=== PATIENT | male | born 1950 | race Caucasian/White ===

== ENCOUNTER → 2017-11-06 09:27 | Outpatient (CLI) | payer MEDICARE, BC, SELFPAY ==
--- NOTE | 2017-11-06 09:35 | RAD_ITS ---
STUDY: X-RAY - LUMBAR SPINE REASON FOR EXAM: Male, 67 years old. One-month history of pain following injury. TECHNIQUE: 5 view(s) of the lumbar spine were obtained including oblique views. COMPARISON: None FINDINGS: There is straightening of the normal lumbar lordosis. There is no substantial scoliosis. There is a normal alignment of the vertebrae. There is multilevel endplate spondylosis of the lumbar vertebrae. Mild degree of disc space narrowing at the L4-L5 and L5-S1 levels. There is atherosclerotic calcification of the abdominal aorta without a demonstrated aneurysm. RAD/L/S Spine Min 4 Views IMPRESSION: Degenerative changes of the spine, as detailed above. Electronically Signed: Hood Sanabria MD at 15:49 EDT Tel [phone], Service support ,
--- NOTE | 2017-11-06 09:35 | RAD_ITS ---
STUDY: X-RAY - CERVICAL SPINE REASON FOR EXAM: Male, 67 years old. Neck pain and shoulder pain following injury. TECHNIQUE: 5 view(s) of the cervical spine were obtained including oblique views. COMPARISON: None FINDINGS: There are degenerative changes of the anterior atlantoaxial articulation. Normal odontoid process. There is straightening of the normal cervical lordosis. There is multi-level endplate spondylosis. There is multi-level degenerative disc disease with multilevel disc space narrowing. Normal visualized intervertebral neuroforamina. The soft tissue structures are unremarkable. RAD/Cerv Spine 4 or 5 Views IMPRESSION: Loss of the normal cervical lordosis. Multilevel spondylosis and disc degenerative disease. Electronically Signed: Hood Sanabria MD at 15:48 EDT Tel [phone], Service support ,
== END ==
PROVIDERS: Family Provider Family Medicine; PCP Family Medicine; Visit Provider Family Medicine
DX: M54.2 Cervicalgia (principal); M54.9 Dorsalgia, unspecified
CPT/HCPCS: 72050; 72110

== ENCOUNTER → 2017-11-07 06:14 | Outpatient (CLI) | payer MEDICARE, BC, SELFPAY ==
[2017-11-07 07:40] LABS: Absolute Neutrophil Count 3.2 X10^3/uL (2.0-7.7); Basophil# 0.03 X10^3/uL; Basophil% 0.5 % (0-1); Eosinophil# 0.24 X10^3/uL; Eosinophils% 3.7 % (0-5); Hematocrit 44.6 % (40-54); Hemoglobin 15.4 g/dl (13.0-16.5); Lymphocyte % 38.3 % (19-41); Mean Corp Hgb Conc 34.5 g/gl (32-36); Mean Corpuscular Hgb 32.2 pg (27.0-32.0); Mean Corpuscular Volume 93.3 fL (80-94); Mean Platelet Vol. 9.5 fl (6.2-12.0); Monocyte# 0.52 X10^3/uL; Neutrophil # 3.23 X10^3/uL (2.7-7.7); Neutrophil % 49.3 % (47-70); Platelet Count 219 K/mm3 (150-450); RBC Distribution Width CV 12.3 % (11.6-14.6); Red Blood Count 4.78 M/mm3 (4.6-6.2); White Blood Count 6.5 K/mm3 (4.4-11.0)
[2017-11-07 07:59] LABS: ALB/GLOB Ratio 1.1 RATIO (0.9-2.4); AST(SGOT) 18 U/L (15-37); Alanine Aminotransfer ALT/SGPT 39 U/L (16-61); Albumin, Serum 3.7 g/dL (3.2-5.0); Alkaline Phosphatase 90 U/L (45-117); Anion Gap 4 (5-15); BUN 20 mg/dL (7-18); BUN/Creat Ratio 22.3 RATIO (10-20); Calcium,Total 8.7 mg/dL (8.5-10.1); Chloride 109 mmol/L (98-107); Cholesterol 143 mg/dL (200); EST Glomerular Filtration Rate 89 mL/min (>60); Est Glom Filt Rate - Afr Amer 108 mL/min (>60); Globulin 3.4 g/dL (2.2-4.2); Glucose 87 mg/dL (74-106); High Density Lipoprotein 30 mg/dL; PSA,Total - Annual Screen 1.27 ng/mL (0.00-4.00); Potassium 4.3 mmol/L (3.5-5.1); Protein, Total 7.1 g/dL (6.4-8.2); Sodium Level 143 mmol/L (136-145); Triglycerides 129 mg/dL; Very Low Density Lipoprotein 26 mg/dL (5-40)
[2017-11-07 08:06] LABS: POSITIVE COUNT NO; POSITIVE DIFFERENTIAL NO; POSITIVE MORPHOLOGY NO
== END ==
PROVIDERS: Family Provider Family Medicine; PCP Family Medicine; Visit Provider Family Medicine
DX: I10 Essential (primary) hypertension (principal); Z12.5 Encounter for screening for malignant neoplasm of prostate; E78.5 Hyperlipidemia, unspecified
CPT/HCPCS: 36415; 80053; 80061; 84153; 85025; G0103

== ENCOUNTER → 2018-10-08 06:15 | Outpatient (CLI) | payer MEDICARE, BC, SELFPAY ==
[2017-06-12 09:36] VITALS: BMI 26.9
[2018-10-08 07:45] LABS: Absolute Lymphocyte Count 2.15 X10^3/ul (0.83-4.51); Absolute Neutrophil Count 2.8 X10^3/uL (2.0-7.7); Basophil# 0.03 X10^3/uL; Basophil% 0.5 % (0-1); Eosinophils% 3.5 % (0-5); Hematocrit 43.3 % (40-54); Lymphocyte # 2.15 X10^3/ul (4.0); Lymphocyte % 37.7 % (19-41); Mean Corp Hgb Conc 34.6 g/gl (32-36); Mean Corpuscular Hgb 32.1 pg (27.0-32.0); Mean Corpuscular Volume 92.7 fL (80-94); Mean Platelet Vol. 9.4 fl (6.2-12.0); Monocyte% 8.8 % (0-10); Neutrophil # 2.82 X10^3/uL (2.7-7.7); Neutrophil % 49.3 % (47-70); Platelet Count 227 K/mm3 (150-450); RBC Distribution Width CV 13.6 % (11.6-14.6); RBC Distribution Width SD 45.9 fl (35.1-43.9); Red Blood Count 4.67 M/mm3 (4.6-6.2); White Blood Count 5.7 K/mm3 (4.4-11.0)
[2018-10-08 07:48] LABS: POSITIVE COUNT NO; POSITIVE DIFFERENTIAL NO; POSITIVE MORPHOLOGY NO
[2018-10-08 08:00] LABS: ALB/GLOB Ratio 1.2 RATIO (0.9-2.4); AST(SGOT) 20 U/L (15-37); Alanine Aminotransfer ALT/SGPT 28 U/L (16-61); Albumin, Serum 3.9 g/dL (3.2-5.0); Alkaline Phosphatase 82 U/L (45-117); Anion Gap 7 (5-15); BUN 17 mg/dL (7-18); BUN/Creat Ratio 20.8 RATIO (10-20); Calcium,Total 8.9 mg/dL (8.5-10.1); Chloride 110 mmol/L (98-107); Cholesterol 154 mg/dL (200); Creatinine, Serum 0.82 mg/dL (0.70-1.30); EST Glomerular Filtration Rate 99 mL/min (>60); Est Glom Filt Rate - Afr Amer 120 mL/min (>60); Globulin 3.2 g/dL (2.2-4.2); Glucose 94 mg/dL (74-106); High Density Lipoprotein 36 mg/dL; Potassium 3.8 mmol/L (3.5-5.1); Protein, Total 7.1 g/dL (6.4-8.2); Sodium Level 143 mmol/L (136-145); Triglycerides 110 mg/dL; Very Low Density Lipoprotein 22 mg/dL (5-40)
[2018-10-11 12:06] LABS: Testosterone, Free 6.78 ng/dL (5.00-21.00)
[2018-10-12 11:15] LABS: Testosterone, % Free 2.16 % (1.50-4.20); Testosterone, Total 314 ng/dL (264-916)
== END ==
LOC: LAB.FUTURE 07-22 00:33 → BFHLAB 12-08 09:05
PROVIDERS: Family Provider Family Medicine; PCP Family Medicine; Referring Provider Family Medicine; Visit Provider Family Medicine
DX: I10 Essential (primary) hypertension (principal); E78.5 Hyperlipidemia, unspecified; N52.9 Male erectile dysfunction, unspecified; G47.61 Periodic limb movement disorder; Z51.81 Encounter for therapeutic drug level monitoring; Z12.5 Encounter for screening for malignant neoplasm of prostate
CPT/HCPCS: 36415; 80053; 80061; 84153; 84402; 84403; 85025; G0103

== ENCOUNTER → 2019-12-13 08:06 | Outpatient (CLI) | payer MEDICARE, BC, SELFPAY ==
[2017-06-12 09:36] VITALS: BMI 26.9
[2019-12-13 12:06] LABS: Absolute Lymphocyte Count 1.76 X10^3/uL (0.83-4.51); Absolute Neutrophil Count 3.5 X10^3/uL (2.0-7.7); Basophil# 0.06 X10^3/uL; Eosinophil# 0.14 X10^3/uL; Eosinophils% 2.4 % (0-5); Hematocrit 45.4 % (40-54); Hemoglobin 15.5 g/dL (13.0-16.5); Lymphocyte # 1.76 X10^3/ul (4.0); Lymphocyte % 30.1 % (19-41); Mean Corp Hgb Conc 34.1 g/dL (32-36); Mean Corpuscular Hgb 32.7 pg (27.0-32.0); Mean Corpuscular Volume 95.8 fL (80-94); Monocyte# 0.43 X10^3/uL; Monocyte% 7.4 % (0-10); NRBC Flagged by Analyzer 0 % (0-5); Neutrophil # 3.45 X10^3/uL (2.7-7.7); Neutrophil % 58.9 % (47-70); Platelet Count 241 K/mm3 (150-450); RBC Distribution Width CV 12.5 % (11.6-14.6); RBC Distribution Width SD 43.4 fl (35.1-43.9); Red Blood Count 4.74 M/mm3 (4.6-6.2); White Blood Count 5.9 K/mm3 (4.4-11.0)
[2019-12-13 12:22] LABS: Cholesterol 147 mg/dL (200); High Density Lipoprotein 31 mg/dL; PSA,Total - Annual Screen 1.75 ng/mL (0.00-4.00); Triglycerides 91 mg/dL; Very Low Density Lipoprotein 18 mg/dL (5-40)
[2019-12-17 15:19] LABS: Testosterone, % Free 1.63 % (1.50-4.20); Testosterone, Total 374 ng/dL (264-916)
== END ==
PROVIDERS: PCP Family Medicine; Visit Provider Family Medicine
DX: I10 Essential (primary) hypertension (principal); E78.5 Hyperlipidemia, unspecified; N52.9 Male erectile dysfunction, unspecified; Z12.5 Encounter for screening for malignant neoplasm of prostate
CPT/HCPCS: 36415; 80061; 84153; 84402; 84403; 85025; G0103

== ENCOUNTER 2020-03-15 06:21 | Day surgery (SDC) | payer MEDICARE, BC, SELFPAY ==
[2020-03-15 06:49] VITALS: BP 131/77; PULSE 65; RESP 16; TEMP 36.4; O2SAT 100; BMI 25.2
[2020-03-15] MEDS: Lactated Ringers 1,000 ML 100 ML IV (06:54)
--- NOTE | 2020-03-15 07:26 | H&P.OPEN ---
History of Present Illness Date of Admission: 03/15/20 The patient is a 69 year old M who presents for screening colonoscopy. Is been 10 years since his last colonoscopy. He has a brother who has had colon polyps. Past Medical/Surgical History - Planned Operation Planned Operative Procedure/s: COLONOSCOPY Date of Operative Procedure: 03/15/20 Permit Signed: Yes S.O.S: No Is This Patient Having a Total Joint: No - Previous Hospitalizations/Surgeries HX Hospitalizations: No HX of Surgeries: GALLBLADDER. ESOPHAGEAL WRAP. SHOULDER ARTHROPLASTY,. SHOULDER ROTATOR CUFF. CHIN/NECK SURGERY. COLONOSCOPY. SEPTOPLASTY Any Problems With Anesthesia: No You/Your Family Experience Fever (Hyperthermia) With Anes: No Cholinesterase deficiency: No - Cardiovascular Hx Chest Pain within Last 2 months: No Hx of Irregular Heartbeat and/or Afib: Yes - HEART MURMUR Hx Heart Attack: No Hx Congestive Heart Failure: No Hx Rheumatic Fever: No Hx Hypertension: Yes - ON MED Hx Internal Defibrillator: No Hx Pacemaker: No Hx Cardiac Catheterization: No Hx Cardiac Surgery/Stents/Etc.: No Hx Stress Test: Yes - 35 YRS AGO HX Edema: Yes - GIOVANI ANKLE Hx Pain in Legs when Walking/Leg Cramps: Yes - Respiratory Chronic Cough: No HX of Shortness of Breath: No Hoarseness: No Hx Chronic Obstructive Pulmonary Disease (COPD): No Hx Asthma: No Hx Emphysema: No Hx Sleep Apnea: Yes CPAP: Yes - QUIT USING-USES MOUTH DEVICE BIPAP: No Hx Oxygen Use at Home: No Hx Respiratory Tract Infection/Cold (presently): No Result (for STOP score): Positive Hx Smoking: No Smoking Status: Never smoker - Gastrointestinal Hx Gastroesophageal Reflux: No Hx Gastrointestinal Disorders: No Hx Gastrointestinal Bleed: No Hx Ulcer: Yes Hx Hiatal Hernia: No Difficulty Chewing/Swallowing: No Recent Onset of Swallowing Problems: No Special diet followed at home: No Hx Unplanned Weight Loss of 20#: No HX Unplanned Weight Gain of 20#: No - Neurological Hx Seizures: No HX Syncope/Blackout Spells/Unconsciousness: No Hx CVA/Stroke: No Hx Transient Ischemic Attacks (TIA): No Hx Multiple Sclerosis: No Hx Parkinson's Disease: No Hx Head/Neck Injury: Yes - FALL YRS AGO Hx Headaches: Yes - AGE 22-33 MIGRAINES-HAD SEPTOPLASTY SURG Hx Back Injury/Pain: Yes - LOWER DISC 4-5 Recent Onset of Speech Difficulty: No Restless Legs: Yes - PERIODIC LIMB MOVEMENT DISORDER Does patient have nerve stimulator: No - Blood Disorder Hx Leukemia: No Bleeding Tendencies: No Hx Deep Vein Thrombosis: No Hx High Cholesterol: Yes - OFF MEDS PRESENTLY Blood Transmitted Disease: No Hx Hepatitis: No Hx Cirrhosis: No Hx Anemia: No Hx Blood Disorders: No - Genitourinary Hx Renal Disease: No - Musculoskeletal Hx Arthritis: No Hx Rheumatoid Arthritis: No Hx Gout: No Recent Onset of an Orthopedic Problem: No - Endocrine Hx Diabetes: No Thyroid Disease: No Hx Steroid Therapy: No - Psycho/Social Hx Substance Use: No Hx Alcohol Use: No Hx Anxiety: No Hx Depression: No Mental Illness: No Hx Dementia: No - Miscellaneous Hx Cancer: No Recent Exposure to Contagious Disease: No Active MRSA: No Hx of C-Diff: No Any Loose Teeth: No Allergies No Known Allergies Allergy (Verified 03/06/20 12:04) - Discharge Is Pt Admitted From a Half-Way, or a Nursing Home: No Who Could Help: After D/C, Where Do you Plan to Go: Return Home - From the PAT History Number of Risk Factors: 2 - Physical Exam Vitals/I&O's: Vital Signs Temp Pulse Resp BP Pulse Ox 97.6 F L 65 16 131/77 H 100 03/15/20 06:49 03/15/20 06:49 03/15/20 06:49 03/15/20 06:49 03/15/20 06:49 Oxygen Delivery Method Room Air Weight: 175 lb 7.807 oz Body Mass Index (BMI) 25.2 General: Alert, Oriented x3 Lungs: Clear to auscultation Cardiovascular: Regular rate, Regular Rhythm, No murmurs Abdomen: Bowel Sounds Present, Soft, Non Tender, Non-Distended Current Medications Lactated Ringer's () 1,000 mls @ 100 mls/hr IV .Q10H JOHN Last Admin: 03/15/20 06:54 Dose: 100 mls/hr Documented by: Assessment/Plan All Active Problems (Last Updated 06/12/17 @ 09:39 by Vidhya Wilson) Sinusitis (Acute) Bronchitis (Acute) URI (upper respiratory infection) (Acute) Plan is for a screening colonoscopy. Procedure Criteria Procedure Type: Elective COVID Risk Discussion: The surgeon/proceduralist and patient have discussed in detail the risk of exposure to and/or potential harm posed by the COVID-19 virus with having a surgery/procedure at this time versus the risk of delaying the surgery/procedure. It is not possible to know either the risk of delaying the surgery or procedure or chance of getting an infection with perfect accuracy, but a joint decision was made between the patient and the surgeon/proceduralist to proceed at this time with the scheduled surgery/procedure as indicated on the consent form. Surgery Risks - Colonoscopy Risks Include but are not Limited To: Risks include but are not limited to: Bleeding, perforation requiring further surgery, inability to complete colonoscopy requiring barium enema.
[2020-03-15 07:45] VITALS: BP 106/73; BP 131/72; PULSE 67; RESP 16; TEMP 36.4; O2SAT 100
--- NOTE | 2020-03-15 07:47 | OP.CCLET_ITS ---
03/15/2020 Juan J Wallace [address] [place] [address] Re : Colonoscopy procedure for Satish Learyison Dear Dr. Wallace This procedure was performed on Sunday, March 15, 2020. My impressions and recommendations are as follows: Impressions : - The examined portion of the ileum was normal. - Non-bleeding internal hemorrhoids. No specimens collected. - The examination was otherwise normal. Recommendations : - Discharge patient to home. - Resume previous diet. - Continue present medications. - Await pathology results. - Repeat colonoscopy in 10 years for screening purposes. - Return to primary care physician (date not yet determined). My findings are described in the full procedure note, which is enclosed. If I can be of further assistance, please feel free to contact me at Doctor phone number(s): , Fax: [phone], Work: . Sincerely, MD Raman Alexandre MD 03/15/2020 7:46:27 AM This report has been signed electronically.
--- NOTE | 2020-03-15 07:47 | OP.COLON_ITS ---
Patient Name: Satish Ortiz Procedure Date: 03/15/2020 7:07 AM Date of : 1950 Age: 69 Procedure: Colonoscopy Indications: Screening for colorectal malignant neoplasm Providers: Raman Morris MD Referring MD: Juan J Wallace Medicines: See the Anesthesia note for documentation of the administered medications Patient Profile: This is a 69 year old male. Refer to note in patient chart for documentation of history and physical. Last Colonoscopy: 10 years ago. Complications: No immediate complications. Procedure: Pre-Anesthesia Assessment: - Prior to the procedure, a History and Physical was performed, and patient medications and allergies were reviewed. The patient's tolerance of previous anesthesia was also reviewed. The risks and benefits of the procedure and the sedation options and risks were discussed with the patient. All questions were answered, and informed consent was obtained. Prior Anticoagulants: The patient has taken no previous anticoagulant or antiplatelet agents. ASA Grade Assessment: II - A patient with mild systemic disease. After reviewing the risks and benefits, the patient was deemed in satisfactory condition to undergo the procedure. After I obtained informed consent, the scope was passed under direct vision. Throughout the procedure, the patient's blood pressure, pulse, and oxygen saturations were monitored continuously. The colonoscope was introduced through the anus and advanced to 3 cm into the ileum. The colonoscopy was performed without difficulty. The patient tolerated the procedure well. The quality of the bowel preparation was good. Scope In: 7:30:12 AM Scope Withdrawal Time 0 hours 6 minutes 38 seconds Scope Out: 7:42:25 AM Total Procedure Duration Time 0 hours 12 minutes 13 seconds Findings: The terminal ileum appeared normal. Non-bleeding internal hemorrhoids were found during retroflexion. The hemorrhoids were mild and small. No biopsies or other specimens were collected for this exam. The exam was otherwise without abnormality. Impression: - The examined portion of the ileum was normal. - Non-bleeding internal hemorrhoids. No specimens collected. - The examination was otherwise normal. Recommendation: - Discharge patient to home. - Resume previous diet. - Continue present medications. - Await pathology results. - Repeat colonoscopy in 10 years for screening purposes. - Return to primary care physician (date not yet determined). Procedure Code(s): --- Professional --- G0121, Colorectal cancer screening; colonoscopy on individual not meeting criteria for high risk Diagnosis Code(s): --- Professional --- Z12.11, Encounter for screening for malignant neoplasm of colon K64.8, Other hemorrhoids CPT copyright 2017 [employer]. All rights reserved. The codes documented in this report are preliminary and upon mercerizer machine operator review may be revised to meet current compliance requirements. MD Raman Alexandre MD 03/15/2020 7:46:27 AM This report has been signed electronically. Number of Addenda: 0 Note Initiated On: 03/15/2020 7:07 AM
[2020-03-15 07:50] VITALS: BP 106/72; BP 131/72; PULSE 68; RESP 16; O2SAT 99
[2020-03-15 07:55] VITALS: BP 119/77; BP 131/72; PULSE 65; RESP 16; O2SAT 98
[2020-03-15 08:00] VITALS: BP 117/81; BP 131/72; PULSE 66; RESP 16; TEMP 37.3; O2SAT 98
[2020-03-15 08:28] VITALS: BP 131/72
== END 2020-03-15 08:29 | disposition home or self-care (01) ==
LOC: EN 06:21 → AC 06:22
PROVIDERS: Anesthesiology; PCP Family Medicine; Referring Provider Family Medicine; Visit Provider Surgery
PROC: 0DJD8ZZ Inspection of Lower Intestinal Tract, Via Natural or Artificial Opening Endoscopic (ICD-10-PCS; CPT 45378; principal; 2020-03-15 07:25)
DX: Z12.11 Encounter for screening for malignant neoplasm of colon (principal); K64.8 Other hemorrhoids; Z11.59 Encounter for screening for other viral diseases; I10 Essential (primary) hypertension; E78.00 Pure hypercholesterolemia, unspecified; G47.61 Periodic limb movement disorder; G47.30 Sleep apnea, unspecified; Z79.899 Other long term (current) drug therapy; Z83.71 Family history of colonic polyps
CPT/HCPCS: G0121; 87635; C9803; J7120; J1610; J2405; U0003

== ENCOUNTER → 2020-03-30 10:50 | Outpatient (CLI) | payer MEDICARE, BC, SELFPAY ==
[2020-03-15 06:49] VITALS: BMI 25.2
--- NOTE | 2020-03-30 10:59 | MRI_ITS ---
STUDY: MRI LUMBAR SPINE WITHOUT CONTRAST REASON FOR EXAM: Male, 69 years old. low back pain into hips/grion x 3 mons TECHNIQUE: Standardized fat and water weighted pulse sequences were obtained in the sagittal and axial planes. COMPARISON: 12/29/2008 FINDINGS: T12-L1: Normal endplates. Normal disc height, hydration and morphology. Normal bilateral facet joints. Normal central canal and bilateral lateral recesses. Normal bilateral intervertebral neural foramina. Normal lumbar lordosis. There is no substantial scoliosis. Normal conus medullaris that terminates at the L1. L1-2: Normal endplates. Normal disc height, hydration and morphology. Normal bilateral facet joints. Normal central canal and bilateral lateral recesses. Normal bilateral intervertebral neural foramina. L2-3: Normal endplates. Normal disc height, hydration and morphology. Normal bilateral facet joints. Normal central canal and bilateral lateral recesses. Normal bilateral intervertebral neural foramina. L3-4: Normal endplates. Normal disc height, hydration and morphology. Normal bilateral facet joints. Normal central canal and bilateral lateral recesses. Normal bilateral intervertebral neural foramina. L4-5: Mild bilateral facet hypertrophy and moderate ligament flavum hypertrophy. Small central disc protrusion produces minimal spinal stenosis and no neural foraminal stenosis. L5-S1: Mild broad disc protrusion produces mild spinal stenosis and mild bilateral neural foraminal stenosis. Normal visualized sacral ala. Normal visualized paraspinous soft tissue structures. MRI/Spine Lumbar (Routine) IMPRESSION: Mild degenerative disc disease as described above. Electronically Signed: Calderon Kolb MD at 17:58 EDT Tel , Service support ,
== END ==
PROVIDERS: PCP Family Medicine; Referring Provider Family Medicine; Visit Provider Family Medicine
DX: M54.16 Radiculopathy, lumbar region (principal); M47.816 Spondylosis without myelopathy or radiculopathy, lumbar region
CPT/HCPCS: 72148

== ENCOUNTER 2020-08-16 08:16 | Outpatient (RCR) | payer MEDICARE, BC, SELFPAY | END 2020-08-16 23:59 | LOC: IMMUN 08:16 | PROVIDERS: PCP Family Medicine; Visit Provider Family Medicine | DX: Z23 Encounter for immunization (principal) | CPT/HCPCS: 0011A; 0012A ==

== ENCOUNTER 2021-10-08 10:20 | Day surgery (SDC) | payer MEDICARE, BC, SELFPAY ==
[2021-10-08] VITALS (7 sets, daily range): BP systolic 122–141; BP diastolic 72–94; PULSE 61–74; RESP 14–16; TEMP 36.4–37.2; O2SAT 98–100; BMI 25.4
[2021-10-08] MEDS: Lactated Ringers 1,000 ML 15 ML IV (11:20)
[2021-10-08] MEDS: Cefazolin 2 GM in 0.9% Normal Saline 100 ML IV (12:10)
--- NOTE | 2021-10-08 12:22 | RAD_ITS ---
STUDY: INTRAOPERATIVE FLUOROSCOPY TECHNIQUE: The examination was performed with referring physician in attendance. Under fluoroscopic observation, fluoroscopic images were obtained. Radiologist was not present for the study. Radiologist did not perform the procedure. This dictation is for documentation of the radiation dosage only. There is no interpretation of the images. TOTAL NUMBER OF IMAGES: 1 COMPARISON: None RADIATION DOSE: 72 mGy FLUOROSCOPY TIME: 177 seconds REASON FOR EXAM: SPINAL CORD STIMULATOR INSERTION Male, 71 years old. FINDINGS: Sequential images there is replacement of the spinal cord stimulator lead. RAD/Lumbar Spine 2 or 3 Views IMPRESSION: Fluoroscopic assistance images were obtained. Dictation for documentation purposes only. Electronically Signed: Yunior Hutchins MD at 21:23 EDT ,
[2021-10-08] MEDS: Bupivacaine 0.25% 30 ML Vial (13:22)
[2021-10-08] MEDS: Lidocaine 2% (20 ml mdv) 20 ML Vial (13:23)
[2021-10-08] MEDS: Bacitracin 500 UNITS/GM PACKET (13:26)
--- NOTE | 2021-10-08 15:27 | OP.PCM_ITS ---
Report of Operation Date of Procedure: 10/08/21 Description of Surgical Findings:: Description of Surgical Findings:: Pre- Operative Diagnosis: Lumbosacral radiculopathy, lumbosacral degenerative disc disease, lumbosacral spinal stenosis, lumbar postlaminectomy syndrome Post-Operative Diagnosis: Lumbosacral radiculopathy, lumbosacral degenerative disc disease, lumbosacral spinal stenosis, postlaminectomy syndrome of the lumbar spine Surgery/Procedure Performed:: 1. Spinal cord stimulator thoracolumbar leads placement x2 #2 spinal cord stimulator Medtronic intellus generator placement #3 spinal cord stimulator generator pocket creation at the left gluteal region #4 spinal cord stimulator programming, 5-intraoperative fluoroscopic interpretation ANESTHESIA: MAC COMPLICATIONS: None BLOOD LOSS: Minimal <25 CC Implanted device: Spinal cord stimulator lead [id number] lot number [id number], lead #[id number] lot number [id number] Medtronic spinal cord stimulator generator intellus serial number [id number] PROCEDURE IN DETAIL: History and physical today was reviewed. Risks and benefits of procedure e xplained. The patient understood, agreed to procedure, informed consent was obtained. IV inserted per routine protocol. The patient was taken to the operating room, placed in the prone position with a pillow positioned underneath the abdomen. A 2 g of Ancef IV piggyback was infused per anesthesia. The lower back and right gluteal area was prepped and draped in a sterile fashion using iodine x3 Ioban was placed. The C-arm was brought in position for AP view at the L1-2 vertebral bodies under direct visualization fluoroscopy on a true AP view the L1-2 interlaminar space was identified skin and subcutaneous tissue and size approximately 10 cc of a mix of 2% lidocaine and 0.25% Marcaine using a 25-gauge regular needle followed by a 25-gauge 3-1/2 inch spinal needle towards the interlaminar space at L1-L2, the skin and subcutaneous tissue were then anesthetized and using an 11-gauge blade was then taken down to the skin and subcutaneous tissue using a 14-gauge 3-1/2 inch Touhy needle provided by the [employer] HTI kit the needle was passed through the skin towards the interlaminar space at T12-L1 and a right paramedian approach the needle was then advanced under direct visualization fluoroscopy towards the interlaminar space at L2-3 [id number] technique was then carried to air towards the interlaminar space at T12-L1 once the tip of the needle was in the epidural space and loss of resistance was encountered to air and after confirmation of AP-- as well as oblique view of the spinal cord stimulator lead was then advanced under direct visualization fluoroscopy to be at the tip of the lead at T8 and the bottom of the lead around mid T10 after confirmation of AP as well as well as lateral view to confirm correct placement of the lead in the posterior compartment of the epidural space the previous procedure was then repeated to the same level on the right parapmedian approach, interlaminar space the second lead was then inserted under direct visualization with fluoroscopy to be at the tip of T8 and mid T10 area the leads were were then connected to the external neurostimulator and patient was then awakened to confirm satisfactory coverage of the painful area once satisfactory coverage was then achieved the stylette of each needle was then removed and the skin and subcutaneous tissue on to the left of the paramedian needles was then taken anesthetized with a total of 10 cc of the previous mixture of 0.25% Marcaine and 2% lidocaine using a 25-gauge regular needle the incision was then taken down through the skin and subcutaneous tissue towards the fascia making sure hemostasis was then maintained via cautery, the spinal cord stimulator leads were then passed through the above incision and secured using the anhor and sutured down with a 2-0 silk to the fascia at that level the spinal cord stimulator leads were then tunneled via a tunneler provided by the [employer] kit towards the previously incised spinal cord stimulator battery at the left gluteal region skin and subcutaneous tissue were anesthetized with approximately 10 cc of a mix of 2% lidocaine and 0.25% Marcaine using a 25 gauge regular needle, skin and subcutaneous tissue was then taken down with the 11-gauge blade hemostasis was maintained with Bovie and direct pressure the incision was then taken down to the fascia and the battery was then secured with the 2-0 silk sutures that were the spinal cord stimulator leads the upper lead was then marked the new until spinal cord stimulator battery was then provided Via [employer] HTI kit the battery was then reattached of the spinal cord stimulator make ensure that the top lead is attached to the top position from 0-7 electrodes and the bottom from 8-15 electrodes once impedance was then checked to be in the proper average number the intellus battery was then inserted into the pocket and impedance with when checked again the pocket was then inspected to confirm hemostasis in place, the intellus battery was then secured to the fascia using a 2-0 silk to the upper eyes of the battery confirming an upward writing of the intellus facing posterior, once complete confirmation the battery was then placed in the position and the the mid paramedian and the gluteal incisions were then closed primarily through a 3-0 Vicryl in a running fashion followed by a 4- 0 Vicryl to the skin, hemostasis was then maintained during the procedure the skin was then covered with a Steri-Strips and bacitracin patient was then returned into the supine position in a stable condition and returned to recovery in a stable condition patient experienced no signs or symptoms of intrathecal or intravascular injection patient experienced no paresthesia the procedure was completed without any apparent difficulty any complication the patient appeared to tolerate well, motor as well as sensory function was unchanged from prior to the procedure ESTIMATED BLOOD LOSS: Minimal less than 25 mL ASSESSMENT AND PLAN: This is a 71-year-old male with lumbosacral radiculopathy lumbosacral degenerative disc disease lumbosacral spinal stenosis status post 1. Spinal cord stimulator thoracolumbar leads placement x2 #2 spinal cord stimulator Medtronic intellus generator placement #3 spinal cord stimulator generator pocket creation at the left gluteal region #4 spinal cord stimulator programming, 5-intraoperative fluoroscopic interpretation patient will continue his current medications a prescription was provided to the patient keflex 500 mg 1 p.o. every 8 hours for 7 days postop instruction were given in writing to the patient and his as well as verbally and in writing, patient will follow approximately 1 week for reevaluation.
== END 2021-10-08 15:39 | disposition home or self-care (01) ==
LOC: SDC 10:22 → AC 10:58
PROVIDERS: PCP Family Medicine; Referring Provider Anesthesiology Pain Medicine; Visit Provider Anesthesiology Pain Medicine
PROC: (CPT 63685; principal; 2021-10-08 11:45)
DX: M51.17 Intervertebral disc disorders with radiculopathy, lumbosacral region (principal); M48.07 Spinal stenosis, lumbosacral region; M96.1 Postlaminectomy syndrome, not elsewhere classified; Z79.899 Other long term (current) drug therapy; I10 Essential (primary) hypertension; E78.5 Hyperlipidemia, unspecified; G47.33 Obstructive sleep apnea (adult) (pediatric); M19.90 Unspecified osteoarthritis, unspecified site; M47.817 Spondylosis without myelopathy or radiculopathy, lumbosacral region; Z79.891 Long term (current) use of opiate analgesic
CPT/HCPCS: 63685; 63650 ×2; 00300; 72100; 76000; C1778; C1820; J7120

== ENCOUNTER → 2022-01-15 | Outpatient (CLI) | payer MEDICARE, BC, SELFPAY ==
[2022-01-15 07:19] LABS: Absolute Lymphocyte Count 1.77 X10^3/uL (0.83-4.51); Basophil# 0.03 X10^3/uL; Basophil% 0.5 % (0-1); Eosinophil# 0.13 X10^3/uL; Hematocrit 47.9 % (40-54); Hemoglobin 16.4 g/dL (13.0-16.5); Lymphocyte # 1.77 X10^3/ul (0.83-4.51); Lymphocyte % 27.5 % (19-41); Mean Corp Hgb Conc 34.2 g/dL (32-36); Mean Corpuscular Volume 93.6 fL (80-94); Monocyte# 0.48 X10^3/uL; Monocyte% 7.5 % (0-10); NRBC Flagged by Analyzer 0 % (0-5); Neutrophil # 3.99 X10^3/uL (2.7-7.7); Platelet Count 270 K/mm3 (150-450); RBC Distribution Width CV 12.3 % (11.6-14.6); RBC Distribution Width SD 42.6 fl (35.1-43.9); Red Blood Count 5.12 M/mm3 (4.6-6.2); White Blood Count 6.4 K/mm3 (4.4-11.0)
[2022-01-15 07:58] LABS: ALB/GLOB Ratio 1.2 RATIO (0.9-2.4); AST(SGOT) 12 U/L (15-37); Alanine Aminotransfer ALT/SGPT 27 U/L (16-61); Alkaline Phosphatase 80 U/L (45-117); Anion Gap 3 (5-15); BUN 12 mg/dL (7-18); BUN/Creat Ratio 14.2 RATIO (10-20); Calcium,Total 9.4 mg/dL (8.5-10.1); Chloride 106 mmol/L (98-107); Cholesterol 134 mg/dL (200); Creatinine, Serum 0.85 mg/dL (0.70-1.30); EST Glomerular Filtration Rate 94 mL/min (>60); Est Glom Filt Rate - Afr Amer 114 mL/min (>60); Globulin 3.4 g/dL (2.2-4.2); Glucose 91 mg/dL (74-106); High Density Lipoprotein 36 mg/dL; PSA,Total - Annual Screen 1.51 ng/mL (0.00-4.00); Potassium 3.8 mmol/L (3.5-5.1); Protein, Total 7.4 g/dL (6.4-8.2); Sodium Level 139 mmol/L (136-145); Triglycerides 92 mg/dL; Very Low Density Lipoprotein 18 mg/dL (5-40)
[2022-01-18 19:52] LABS: Testosterone, % Free 2.47 % (1.50-4.20); Testosterone, Total 421 ng/dL (264-916)
== END | disposition home or self-care (01) ==
LOC: LAB 06:11
PROVIDERS: PCP Family Medicine; Referring Provider Family Medicine; Visit Provider Family Medicine
DX: I10 Essential (primary) hypertension (principal); E78.5 Hyperlipidemia, unspecified; R35.0 Frequency of micturition; Z12.5 Encounter for screening for malignant neoplasm of prostate; E29.1 Testicular hypofunction
CPT/HCPCS: 36415; 80053; 80061; 84153; 84402; 84403; 85025; G0103

== ENCOUNTER → 2022-08-08 | Outpatient (CLI) | payer MEDICARE, BC, SELFPAY ==
--- NOTE | 2022-08-08 09:16 | RAD_ITS ---
STUDY: X-RAY - PELVIS AND LEFT HIP REASON FOR EXAM: Male, 71 years old. L HIP PAIN TECHNIQUE: 3 views of the pelvis and hip. COMPARISON: None. FINDINGS: There is a non-specific bowel gas pattern. There are multiple calcified phleboliths. Normal bilateral iliac wings, sacroiliac joints and visualized sacrum. Normal bilateral superior and inferior pubic rami. There are degenerative changes of the pubic symphysis with articular narrowing and sclerosis. Normal bilateral ischial tuberosities. Normal visualized femoral head. There is osteoarthritic spur formation of the acetabular rim. There is moderate articular joint space narrowing of the hip. Moderate degree of osteonecrosis of the right hip joint as well. RAD/HIP, UNI W/ Pelvis 2-3 Views IMPRESSION: Moderate degree of osteoarthritis of both hip joints. Electronically Signed: Hood Sanabria MD at 9:55 EST ,
== END | disposition home or self-care (01) ==
LOC: RAD 09:12
PROVIDERS: PCP Family Medicine; Referring Provider Family Medicine; Visit Provider Family Medicine
DX: M25.552 Pain in left hip (principal)
CPT/HCPCS: 73502

== ENCOUNTER → 2022-08-15 | Outpatient (CLI) | payer MEDICARE, BC, SELFPAY ==
--- NOTE | 2022-08-15 13:42 | ECHOCS_ITS ---
Reason For Study: MURMUR Procedure This was a 2D Doppler, Color Flow transthoracic echocardiogram. The study was technically difficult. Contrast injection was performed. Exam performed in department. Left Ventricle Normal LV size. Left ventricular systolic function is normal. The estimated ejection fraction is 65 %. No evidence for diastolic dysfunction. No regional wall motion abnormalities noted. Right Ventricle Normal RV size. Normal systolic function. Atria Normal left atrium. Normal right atrium. Agitated saline contrast study considered positive for right to left interatrial shunt compatible with a small PFO versus ASD. Mitral Valve There is no mitral annular calcification. Normal mitral valve. Mild (1+) mitral valve insufficiency. Tricuspid Valve Normal tricuspid valve. Mild tricuspid valve insufficiency. Right ventricular systolic pressure estimated to be 32 mmHg. Aortic Valve The aortic valve leaflets are not well visualized, however, there does appear to be evidence of thickening, calcification, and partial restriction. Pulmonic Valve The pulmonic valve is not well visualized. Trivial pulmonic valve insufficiency. Great Vessels Normal sized aortic root. Pericardium/Pleural No pericardial effusion. Medication 22 gauge I.V. with prn adaptor inserted into right arm. Diluted definity 2ml given slow IV push to enhance endocardial definition. Performed a rapid injection of agitated mix of 9 cc saline and 1cc air to assess for atrial septal defect. MMode/2D Measurements & Calculations LVIDd: 4.5 cm IVSd: 0.92 cm LVOT diam: 2.0 cm LVIDs: 3.0 cm LVPWd: 0.64 cm RVDd: 3.3 cm FS: 33.0 % LVOT area: 3.2 cm2 Ao root diam: 2.8 cm LAV(MOD-bp): 43.8 ml LVAd ap4: 27.0 cm2 LAV(MOD-bp) Indexed: 21.9 ml/m2 LVLd ap4: 8.2 cm LAV(MOD-sp2): 42.5 ml EDV(MOD-sp4): 73.3 ml LAV(MOD-sp4): 41.7 ml EDV(sp4-el): 75.1 ml LVAs ap4: 13.4 cm2 LVLs ap4: 6.7 cm ESV(MOD-sp4): 22.8 ml ESV(sp4-el): 22.9 ml EF(MOD-sp4): 68.9 % EF(sp4-el): 69.6 % SV(MOD-sp4): 50.6 ml SV(sp4-el): 52.3 ml LA A4 area: 18.0 cm2 LA dimension(2D): 3.3 cm RA A4 area: 14.6 cm2 Time Measurements MV dec time: 0.23 sec Doppler Measurements & Calculations MV E max solomon: 76.2 cm/sec Lat Peak E' Solomon: 13.3 cm/sec Med Peak E' Solomon: 11.0 cm/sec MV A max solomon: 69.9 cm/sec E/E' lat: 5.7 E/E' med: 6.9 MV E/A: 1.1 Ao V2 max: 233.5 cm/sec LV V1 max: 153.2 cm/sec SV(LVOT): 116.7 ml Ao max P.8 mmHg LV V1 max P.4 mmHg Ao V2 mean: 165.5 cm/sec LV V1 mean P.9 mmHg Ao mean P.2 mmHg LV V1 mean: 102.9 cm/sec Ao V2 VTI: 52.7 cm LV V1 VTI: 36.0 cm AV (velocity ratio): 0.68 CLEVE(I,D): 2.2 cm2 CLEVE(V,D): 2.1 cm2 PA V2 max: 102.4 cm/sec TR max solomon: 269.6 cm/sec TR max P.1 mmHg ECHO/Echo Complete W/ Contrast Interpretation Summary The study was technically difficult. Contrast injection was performed. Left ventricular systolic function is normal. The estimated ejection fraction is 65 %. Mild (1+) mitral valve insufficiency. Mild tricuspid valve insufficiency. The aortic valve leaflets are not well visualized, however, there does appear t o be evidence of thickening, calcification, and partial restriction. Trivial pulmonic valve insufficiency. Right ventricular systolic pressure estimated to be 32 mmHg. No evidence for diastolic dysfunction. Agitated saline contrast study considered positive for right to left interatria l shunt compatible with a small PFO versus ASD. Ordering Physician: Seamus Wallace Referring Physician: SEAMUS WALLACE Performed By: Renetta Brantley RDCS
== END | disposition home or self-care (01) ==
LOC: CVS 13:38
PROVIDERS: PCP Family Medicine; Visit Provider Family Medicine
DX: R01.1 Cardiac murmur, unspecified (principal)
CPT/HCPCS: 93306; Q9957; A4216; C8929

== ENCOUNTER → 2022-08-28 | Outpatient (CLI) | payer MEDICARE, BC, SELFPAY ==
[2022-08-28 07:45] LABS: Cholesterol 130 mg/dL (200); High Density Lipoprotein 34 mg/dL; Triglycerides 98 mg/dL; Very Low Density Lipoprotein 20 mg/dL (5-40)
== END | disposition home or self-care (01) ==
PROVIDERS: PCP Family Medicine; Referring Provider Internal Medicine Cardiovascular Disease; Visit Provider Internal Medicine Cardiovascular Disease
DX: I10 Essential (primary) hypertension (principal)
CPT/HCPCS: 36415; 80061

== ENCOUNTER → 2022-08-30 | Outpatient (CLI) | payer MEDICARE, BC, SELFPAY | END | disposition home or self-care (01) | LOC: CVS 09:43 | PROVIDERS: PCP Family Medicine; Visit Provider Internal Medicine Cardiovascular Disease | DX: I35.0 Nonrheumatic aortic (valve) stenosis (principal) ==

== ENCOUNTER → 2022-09-19 | Outpatient (CLI) | payer MEDICARE, BC, SELFPAY ==
[2022-09-19 07:39] LABS: Anion Gap 4 (5-15); BUN 13 mg/dL (7-18); BUN/Creat Ratio 16.4 RATIO (10-20); Calcium,Total 8.9 mg/dL (8.5-10.1); Chloride 107 mmol/L (98-107); Creatinine, Serum 0.79 mg/dL (0.70-1.30); EST Glomerular Filtration Rate 102 mL/min (>60); Est Glom Filt Rate - Afr Amer 124 mL/min (>60); Glucose 89 mg/dL (74-106); Potassium 3.8 mmol/L (3.5-5.1); Sodium Level 140 mmol/L (136-145)
== END | disposition home or self-care (01) ==
LOC: LAB 06:08
PROVIDERS: PCP Family Medicine; Referring Provider Internal Medicine Cardiovascular Disease; Visit Provider Internal Medicine Cardiovascular Disease
DX: I10 Essential (primary) hypertension (principal)
CPT/HCPCS: 36415; 80048

== ENCOUNTER → 2022-12-12 | Outpatient (CLI) | payer MEDICARE, BC, SELFPAY ==
[2022-12-12 11:16] LABS: Absolute Lymphocyte Count 1.63 X10^3/uL (0.83-4.51); Absolute Neutrophil Count 4.2 X10^3/uL (2.0-7.7); Basophil# 0.05 X10^3/uL; Basophil% 0.8 % (0-1); Eosinophil# 0.11 X10^3/uL; Eosinophils% 1.7 % (0-5); Hemoglobin 15.5 g/dL (13.0-16.5); Lymphocyte # 1.63 X10^3/ul (0.83-4.51); Lymphocyte % 25.2 % (19-41); Mean Corp Hgb Conc 33.7 g/dL (32-36); Mean Platelet Vol. 9.9 fl (6.2-12.0); Monocyte# 0.45 X10^3/uL; Monocyte% 6.9 % (0-10); NRBC Flagged by Analyzer 0 % (0-5); Neutrophil # 4.23 X10^3/uL (2.7-7.7); Neutrophil % 65.2 % (47-70); Platelet Count 246 K/mm3 (150-450); RBC Distribution Width CV 12.5 % (11.6-14.6); RBC Distribution Width SD 43.8 fl (35.1-43.9); Red Blood Count 4.84 M/mm3 (4.6-6.2); White Blood Count 6.5 K/mm3 (4.4-11.0)
[2022-12-12 11:41] LABS: Albumin, Serum 3.7 g/dL (3.2-5.0); Anion Gap 3 (5-15); BUN 13 mg/dL (7-18); BUN/Creat Ratio 16.4 RATIO (10-20); Chloride 108 mmol/L (98-107); Creatinine, Serum 0.79 mg/dL (0.70-1.30); EST Glomerular Filtration Rate 102 mL/min (>60); Est Glom Filt Rate - Afr Amer 123 mL/min (>60); Glucose 97 mg/dL (74-106); Potassium 4.2 mmol/L (3.5-5.1); Sodium Level 141 mmol/L (136-145)
== END | disposition home or self-care (01) ==
LOC: LAB 10:06
PROVIDERS: PCP Family Medicine; Referring Provider Specialist; Visit Provider Specialist
DX: Z01.818 Encounter for other preprocedural examination (principal)
CPT/HCPCS: 36415; 80048; 82040; 85025

== ENCOUNTER → 2023-02-07 | Outpatient (CLI) | payer MEDICARE, BC, SELFPAY ==
--- NOTE | 2023-02-07 12:16 | EKG12_ITS ---
Test Reason : PREOP Blood Pressure : / mmHG Vent. Rate : 069 BPM Atrial Rate : 069 BPM P-R Int : 160 ms QRS Dur : 066 ms QT Int : 378 ms P-R-T Axes : 037 -13 016 degrees QTc Int : 405 ms Normal sinus rhythm Normal ECG Confirmed by GLORIA GOLD ([id number]), order editor CONNIE BARRAGAN ([id number]) on 02/11/2023 9:05:10 AM Referred By: Flex Brown Confirmed By:GLORIA GOLD
[2023-02-07 13:40] LABS: Absolute Lymphocyte Count 1.53 X10^3/uL (0.83-4.51); Absolute Neutrophil Count 6.6 X10^3/uL (2.0-7.7); Basophil# 0.07 X10^3/uL; Basophil% 0.8 % (0-1); Eosinophil# 0.08 X10^3/uL; Eosinophils% 0.9 % (0-5); Hemoglobin 14.8 g/dL (13.0-16.5); Lymphocyte # 1.53 X10^3/ul (0.83-4.51); Lymphocyte % 17.1 % (19-41); Mean Corp Hgb Conc 32.9 g/dL (32-36); Mean Corpuscular Hgb 32.1 pg (27.0-32.0); Mean Corpuscular Volume 97.6 fL (80-94); Monocyte# 0.62 X10^3/uL; Monocyte% 6.9 % (0-10); NRBC Flagged by Analyzer 0 % (0-5); Neutrophil % 73.9 % (47-70); Platelet Count 280 K/mm3 (150-450); RBC Distribution Width CV 12.6 % (11.6-14.6); RBC Distribution Width SD 45.1 fl (35.1-43.9); Red Blood Count 4.61 M/mm3 (4.6-6.2); White Blood Count 8.9 K/mm3 (4.4-11.0)
[2023-02-07 14:08] LABS: Anion Gap 3 (5-15); BUN 12 mg/dL (7-18); BUN/Creat Ratio 15.3 RATIO (10-20); Calcium,Total 9.4 mg/dL (8.5-10.1); Chloride 107 mmol/L (98-107); Creatinine, Serum 0.78 mg/dL (0.70-1.30); EST Glomerular Filtration Rate 103 mL/min (>60); Est Glom Filt Rate - Afr Amer 125 mL/min (>60); Glucose 99 mg/dL (74-106); Sodium Level 139 mmol/L (136-145)
== END | disposition home or self-care (01) ==
LOC: PSN 12:15
PROVIDERS: PCP Family Medicine; Referring Provider Specialist; Visit Provider Specialist
DX: Z01.818 Encounter for other preprocedural examination (principal); Z01.810 Encounter for preprocedural cardiovascular examination
CPT/HCPCS: 36415; 80048; 82040; 85025; 87081; 93005

== ENCOUNTER → 2023-05-27 | Outpatient (CLI) | payer MEDICARE, BC, SELFPAY ==
--- NOTE | 2023-05-27 10:07 | MRI_ITS ---
INDICATION: RADICULOPATHY EXAMINATION: MRI - MR Spine Lumbar W/O Contrast TECHNIQUE: Multiplanar and multisequence MR images of the lumbar spine. IV Contrast Dosage and Agent: None. COMPARISON: 03/30/2020 FINDINGS: VERTEBRAE: Vertebral body heights are preserved. No acute fracture or pathologic marrow replacement. VERTEBRAL ALIGNMENT: No spondylolisthesis. There is preservation of the normal lumbar lordosis. CORD: Normal position and signal intensity of the conus medullaris. L1/L2: Normal disc height and morphology. Normal spinal canal, lateral recesses and neuroforamina. L2/L3: Normal disc height and morphology. Normal spinal canal, lateral recesses and neuroforamina. L3/L4: Normal disc height and morphology. Normal spinal canal, lateral recesses and neuroforamina. L4/L5: Bilateral facet joint hypertrophy and minimal annular bulge. Minimal central stenosis and left foraminal stenosis. L5/S1: Bilateral facet joint hypertrophy and mild circumferential annular bulge. Mild central and bilateral foraminal stenosis. SOFT TISSUES: Unremarkable. MRI/Spine Lumbar (Routine) IMPRESSION: Mild degenerative disc changes of the lower lumbar spine similar to prior study. Electronically Signed: Tang Mo MD at 21:39 EST ,
== END | disposition home or self-care (01) ==
LOC: MRI 10:04
PROVIDERS: PCP Family Medicine; Referring Provider Nurse Practitioner Acute Care; Visit Provider Nurse Practitioner Acute Care
DX: M46.96 Unspecified inflammatory spondylopathy, lumbar region (principal); M51.37 Other intervertebral disc degeneration, lumbosacral region; M54.17 Radiculopathy, lumbosacral region; M47.817 Spondylosis without myelopathy or radiculopathy, lumbosacral region; M48.07 Spinal stenosis, lumbosacral region; M48.062 Spinal stenosis, lumbar region with neurogenic claudication
CPT/HCPCS: 72148

== ENCOUNTER → 2023-06-30 | Outpatient (CLI) | payer MEDICARE, BC, SELFPAY ==
--- OUTSIDE RECORDS SUMMARY | 2023-06-30 11:00 | XMS RPT_ITS | CCD ---
Author Name Unknown Address [address] [place] [address] [place] [address] Organization [facility] Care Team Providers Care [employer] Counter Assistant Name Role Phone IVETH BARNEY Unavailable Unavail able IVETH BARNEY Unavailable Unavail able MAGALY SUBRAMANIAN (WRITER EDITOR) Referring Unavailabl e Problems Problem Classification Problem Date Documented Da te Episodic/Chronic Other eye disorders (1 source) Unspecified ptosis of bilateral eyelids; Translations: [Unspecified ptosis of bilateral eyelids] Onset: 03-20-2018 Episodic Other lower respiratory disease (1 source) Cough; Translations: [Cough] Onset: 08-22-2018 Episodic Results Test Name Value Interpretation Reference Range Facil ity Encounters Encounter Date Encounter Type Care Provider Facility Start: 08-22-2018 End: 08-25-2018 Patient encounter procedure MAGALY Rose (VELIA) MORIS [facility] Start: 03-20-2018 End: 03-20-2018 Patient encounter IVETH FARR [facility] Summary Purpose Family History No Family History Records FoundNo Family History Records Found Advance Directives No Advanced Directives Records FoundNo Advanced Directives Records Found Additional Source Comments (unrecognized sect ion and content) No Status Records FoundNo Status Records Found INFORMATION SOURCE (unrecogn ized section and content) DATE CREATED AUTHOR AUTHOR'S ORGANIZ ATALY 08/26/2018 [facility] FOR RECORDS PERTAINING TO PATIENTS WHO ARE OR HAVE BEEN ENROLLED IN A CHEMICAL DEPENDENCY/SUBSTANCEABUSE PROGRAM, SOME INFORMATION MAY BE OMITTED. This clinical summary was aggregated from multiple sources. Caution should be exercised in using it in the provision of clinical care. This summary normalizes information from multiple sources, and as a consequence, information in this document may materially change the coding, format and clinical context of patient data. In addition, data may be omitted in some cases. CLINICAL DECISIONS SHOULD BE BASED ON THE PRIMARY CLINICAL RECORDS. [employer] provides no warranty or guarantee of the accuracy or completeness of information in this document.
[2023-06-30 12:20] LABS: Absolute Lymphocyte Count 1.48 X10^3/uL (0.83-4.51); Absolute Neutrophil Count 5.9 X10^3/uL (2.0-7.7); Basophil# 0.05 X10^3/uL; Basophil% 0.6 % (0-1); Eosinophil# 0.03 X10^3/uL; Eosinophils% 0.4 % (0-5); Hematocrit 49.1 % (40-54); Hemoglobin 16.2 g/dL (13.0-16.5); Lymphocyte # 1.48 X10^3/ul (0.83-4.51); Lymphocyte % 18.5 % (19-41); Mean Corpuscular Hgb 30.4 pg (27.0-32.0); Mean Corpuscular Volume 92.1 fL (80-94); Mean Platelet Vol. 9.4 fl (6.2-12.0); Monocyte# 0.56 X10^3/uL; NRBC Flagged by Analyzer 0 % (0-5); Neutrophil # 5.85 X10^3/uL (2.7-7.7); Neutrophil % 73.1 % (47-70); Platelet Count 307 K/mm3 (150-450); RBC Distribution Width CV 13.6 % (11.6-14.6); RBC Distribution Width SD 46.5 fl (35.1-43.9); Red Blood Count 5.33 M/mm3 (4.6-6.2)
[2023-06-30 12:42] LABS: Color, Urine Yellow (Yellow); Glucose, Dipstick Normal (Normal); Ketone-Dipstick 5 mg/dl (Negative); Leukocyte Esterase-Dipstick Negative /ul (Negative); Nitrite-Dipstick Negative (Negative); Occult Blood-Urine 10 /ul (Negative); Protein-Dipstick Negative (Negative); Specific Gravity, Urine 1.025 (1.002-1.030); Urine Bilirubin Dipstick Negative (Negative); Urine Clarity Sl. Cloudy (Clear); Urine Urobilinogen Normal (Normal)
[2023-06-30 13:38] LABS: ALB/GLOB Ratio 1.2 RATIO (0.9-2.4); AST(SGOT) 17 U/L (15-37); Alanine Aminotransfer ALT/SGPT 41 U/L (16-61); Alkaline Phosphatase 94 U/L (45-117); Anion Gap 5 (5-15); BUN 13 mg/dL (7-18); BUN/Creat Ratio 15.5 RATIO (10-20); Calcium,Total 9.6 mg/dL (8.5-10.1); Chloride 105 mmol/L (98-107); Creatinine, Serum 0.84 mg/dL (0.70-1.30); EST Glomerular Filtration Rate 95 mL/min (>60); Est Glom Filt Rate - Afr Amer 115 mL/min (>60); Globulin 3.4 g/dL (2.2-4.2); Glucose 90 mg/dL (74-106); LDH 175 U/L (87-241); PSA,Total - Annual Screen 3.14 ng/mL (0.00-4.00); Potassium 3.9 mmol/L (3.5-5.1); Protein, Total 7.4 g/dL (6.4-8.2); Sodium Level 138 mmol/L (136-145); T4 Free Direct 1.66 ng/dL (0.76-1.46); Thyroid Stim Hormone (TSH) 0.88 uIU/mL (0.358-3.74)
[2023-07-01 04:07] LABS: Carbohydrate AG 19-9 9 U/mL (0-35)
== END | disposition home or self-care (01) ==
LOC: BFHLAB 10:36
PROVIDERS: PCP Family Medicine; Visit Provider Family Medicine
DX: Z12.5 Encounter for screening for malignant neoplasm of prostate (principal); R35.0 Frequency of micturition; R10.9 Unspecified abdominal pain; R63.4 Abnormal weight loss
CPT/HCPCS: 36415; 80053; 81002; 83615; 84134; 84153; 84439; 84443; 85025; 86301; G0103

== ENCOUNTER → 2023-07-03 | Outpatient (CLI) | payer MEDICARE, BC, SELFPAY ==
[2023-07-03 16:00] LABS: Free T3 2.4 pg/mL (2.18-3.98); T4 Free Direct 1.28 ng/dL (0.76-1.46); T4 Total, Thyroxin 9.7 ug/dL (4.5-12.1); Thyroid Stim Hormone (TSH) 0.82 uIU/mL (0.358-3.74)
[2023-07-03 17:34] LABS: T3 Total - Triiodothyronine 0.95 ng/mL (0.6-1.81)
[2023-07-07 17:07] LABS: Thyroid Stim Immunoglob <0.10 IU/L (0.00-0.55)
== END | disposition home or self-care (01) ==
LOC: BFHLAB 13:20
PROVIDERS: PCP Family Medicine; Visit Provider Family Medicine
DX: R63.4 Abnormal weight loss (principal); R79.89 Other specified abnormal findings of blood chemistry
CPT/HCPCS: 36415; 84436; 84439; 84443; 84445; 84480; 84481

== ENCOUNTER → 2023-07-09 | Outpatient (CLI) | payer MEDICARE, BC, SELFPAY ==
--- NOTE | 2023-07-09 14:14 | US_ITS ---
INDICATION: NODULE/ELEVATED T4 EXAMINATION: Ultrasound US Thyroid (eg thyroid, parathyroid, parotid) TECHNIQUE: Arcos scale and color doppler imaging was performed of the thyroid gland. COMPARISON: None. FINDINGS: RIGHT THYROID LOBE: 6.1 x 2.3 x 3.0 cm for total volume of 21.7 mL. Heterogeneous echotexture with normal vascularity. [ Several subcentimeter thyroid nodules the largest of which, 1.1 x 0.8 x 0.5 cm and is cystic. Smaller mixed solid and cystic nodules are present. Solid nodules are isoechoic and heterogeneous. None of these meet ACR Ti RADS criteria for follow-up imaging. There is a curvilinear, 1 to 2 mm cystic peripheral calcification right thyroid lobe, 8 mm in length with posterior shadowing LEFT THYROID LOBE: 6 x 1 x 2.4 x 2.8 cm for total volume of 21.5 mL. Significant heterogeneity throughout the lobe. Normal vascularity. [ Several subcentimeter solid nodules, isoechoic without suspicious features. Are also 2 mixed solid and cystic nodules, none of which meet criteria for follow-up imaging ISTHMUS: 7 mm. No thyroid nodules are present. US/Thyroid IMPRESSION: Enlarged, heterogeneous thyroid containing multiple subcentimeter nodules, none of which meet criteria for follow-up imaging based on ACR Ti RADS criteria. Electronically Signed: Anjel Mayen DO at 22:40 EST ,
--- OUTSIDE RECORDS SUMMARY | 2023-07-09 14:34 | XMS RPT_ITS | CCD ---
Author Name Unknown Address [address] [place] [address] [place] [address] Organization [facility] Care Team Providers Care Analytical Lead Name Role Phone IVETH BARNEY Unavailable Unavail able IVETH BARNEY Unavailable Unavail able MAGALY SUBRAMANIAN (LEAD DATA ARCHITECT) Referring Unavailabl e Problems Problem Classification Problem [...] Patient encounter procedure MAGALY Rose (VELIA) MORIS [facility] Start: 03-20-2018 End: 03-20-2018 Patient encounter IVTEH FARR [facility] Summary Purpose Family History No Family History Records FoundNo Family History Records Found Advance Directives No Advanced Directives Records FoundNo Advanced Directives Records Found Additional Source Comments (unrecognized sect ion and content) No Status Records FoundNo Status Records Found INFORMATION SOURCE (unrecogn ized section and content) DATE CREATED AUTHOR AUTHOR'S ORGANIZ ATALY 08/26/2018 [facility] FOR RECORDS PERTAINING TO PATIENTS WHO ARE [...] BE BASED ON THE PRIMARY CLINICAL RECORDS. [employer] provides no warranty or guarantee of the accuracy or completeness of information in this document.
== END | disposition home or self-care (01) ==
LOC: US 14:12
PROVIDERS: PCP Family Medicine; Referring Provider Family Medicine; Visit Provider Family Medicine
DX: E04.1 Nontoxic single thyroid nodule (principal)
CPT/HCPCS: 76536

== ENCOUNTER → 2023-10-03 | Outpatient (CLI) | payer MEDICARE, BC, SELFPAY ==
[2023-10-03 09:12] LABS: Cholesterol 160 mg/dL (200); High Density Lipoprotein 44 mg/dL; Triglycerides 62 mg/dL; Very Low Density Lipoprotein 12 mg/dL (5-40)
== END | disposition home or self-care (01) ==
LOC: LAB 06:33
PROVIDERS: PCP Family Medicine; Referring Provider Internal Medicine Cardiovascular Disease; Visit Provider Internal Medicine Cardiovascular Disease
DX: I10 Essential (primary) hypertension (principal)
CPT/HCPCS: 36415; 80061

== ENCOUNTER → 2023-11-05 | Outpatient (CLI) | payer MEDICARE, BC, SELFPAY ==
--- NOTE | 2023-11-05 12:42 | ECHOD_ITS ---
Reason For Study: MURMUR Procedure This was a 2D Doppler, Color Flow transthoracic echocardiogram. Exam performed in department. Left Ventricle Normal LV size. The estimated ejection fraction is 60 %. No evidence for diastolic dysfunction. No regional wall motion abnormalities noted. Right Ventricle Normal RV size. Normal systolic function. Atria The left and right atria are normal. No doppler evidence for ASD. Mitral Valve There is no mitral valve stenosis. No mitral valve insufficiency. Tricuspid Valve There is no tricuspid stenosis. Trivial tricuspid valve insufficiency. Unable to estimate RV systolic pressure due to insufficient tricuspid regurgitant envelope. Aortic Valve Mild diffuse aortic valve thickening. Trisinus/trileaflet aortic valve. Mild aortic stenosis. No aortic valve insufficiency. Pulmonic Valve There is no pulmonic valvular stenosis. No pulmonic valve insufficiency. Great Vessels Normal aortic root. Pericardium/Pleural No pericardial effusion. MMode/2D Measurements & Calculations LVIDd: 3.3 cm IVSd: 1.1 cm LVOT diam: 2.0 cm LVIDs: 1.9 cm LVPWd: 1.0 cm LVOT area: 3.0 cm2 RVDd: 3.9 cm FS: 42.5 % Ao root diam: 3.1 cm LAV(MOD-bp): 43.7 ml LVAd ap4: 19.1 cm2 LAV(MOD-bp) Indexed: 22.7 ml/m2 LVLd ap4: 7.2 cm LAV(MOD-sp2): 44.1 ml EDV(MOD-sp4): 40.4 ml LAV(MOD-sp4): 43.1 ml EDV(sp4-el): 42.9 ml LVAs ap4: 9.2 cm2 LVLs ap4: 5.7 cm ESV(MOD-sp4): 12.7 ml ESV(sp4-el): 12.6 ml EF(MOD-sp4): 68.5 % EF(sp4-el): 70.7 % LVAd ap2: 22.9 cm2 SV(MOD-sp4): 27.7 ml SV(MOD-sp2): 37.4 ml LVLd ap2: 7.9 cm EDV(MOD-sp2): 53.6 ml EDV(sp2-el): 56.8 ml LVAs ap2: 11.0 cm2 LVLs ap2: 6.2 cm ESV(MOD-sp2): 16.2 ml ESV(sp2-el): 16.5 ml EF(MOD-sp2): 69.8 % SV(sp4-el): 30.4 ml LA dimension(2D): 3.8 cm LA A4 area: 17.6 cm2 RA A4 area: 13.3 cm2 TAPSE: 1.8 cm Time Measurements MV dec time: 0.22 sec Doppler Measurements & Calculations MV E max solomon: 63.9 cm/sec Lat Peak E' Solomon: 11.8 cm/sec Med Peak E' Solomon: 10.3 cm/sec MV A max solomon: 65.2 cm/sec E/E' lat: 5.4 E/E' med: 6.2 MV E/A: 0.98 Ao V2 max: 252.0 cm/sec LV V1 max: 147.1 cm/sec MV dec slope: 285.7 cm/sec2 Ao max P.5 mmHg LV V1 max P.7 mmHg Ao V2 mean: 179.9 cm/sec LV V1 mean P.5 mmHg Ao mean P.4 mmHg LV V1 mean: 100.2 cm/sec Ao V2 VTI: 51.5 cm LV V1 VTI: 27.5 cm AV (velocity ratio): 0.53 CLEVE(I,D): 1.6 cm2 CLEVE(V,D): 1.8 cm2 SV(LVOT): 82.9 ml PA V2 max: 133.7 cm/sec TR max solomon: 234.3 cm/sec PA max PG (full): 4.0 mmHg TR max P.0 mmHg ECHO/Echo Complete Interpretation Summary The estimated ejection fraction is 60 %. No evidence for diastolic dysfunction. Mild aortic stenosis. Ordering Physician: Martha Jacobs Referring Physician: Juan J Wallace Performed By: Naa Alaniz RDCS
== END | disposition home or self-care (01) ==
LOC: CVS 12:39
PROVIDERS: PCP Family Medicine; Referring Provider Internal Medicine Cardiovascular Disease; Visit Provider Internal Medicine Cardiovascular Disease
DX: R01.1 Cardiac murmur, unspecified (principal); I35.0 Nonrheumatic aortic (valve) stenosis; I35.8 Other nonrheumatic aortic valve disorders; Q21.12 Patent foramen ovale
CPT/HCPCS: 93306

== ENCOUNTER 2024-01-01 12:17 | Inpatient (IN) | payer MEDICARE, BC, SELFPAY ==
--- NOTE | 2023-12-11 10:18 | EKG12_ITS ---
Test Reason : PRE OP Blood Pressure : / mmHG Vent. Rate : 063 BPM Atrial Rate : 021 BPM P-R Int : 000 ms QRS Dur : 064 ms QT Int : 394 ms P-R-T Axes : 000 -09 033 degrees QTc Int : 403 ms NSR Abnormal ECG Confirmed by Anjel Singh ([id number]), production editor CONNIE BARRAGAN ([id number]) on 12/15/2023 9:02:31 AM Referred By: Conrado Coyle Confirmed By:nAjel Singh
--- NOTE | 2023-12-11 10:25 | RAD_ITS ---
INDICATION: PRE-OP pre-op for spinal procedure. EXAMINATION/TECHNIQUE: X-RAY - XR Chest 2 Views COMPARISON: None. FINDINGS: LINES/DEVICES: Electrodes overlying the mid thoracic spine. LUNGS: No consolidation. No pneumothorax. MEDIASTINUM: Unremarkable. CARDIAC SILHOUETTE: Not enlarged. BONES AND SOFT TISSUES: No acute abnormalities. Surgical clips right upper abdomen cholecystectomy. RAD/Chest PA and Lateral IMPRESSION: No evidence of active intrathoracic disease. Electronically Signed: Jodi Camacho MD at 8:01 EDT ,
[2023-12-11 11:11] LABS: Absolute Lymphocyte Count 1.81 X10^3/uL (0.83-4.51); Absolute Neutrophil Count 4.4 X10^3/uL (2.0-7.7); Basophil# 0.05 X10^3/uL; Basophil% 0.7 % (0-1); Eosinophil# 0.09 X10^3/uL; Eosinophils% 1.3 % (0-5); Hemoglobin 16.3 g/dL (13.0-16.5); Lymphocyte # 1.81 X10^3/ul (0.83-4.51); Lymphocyte % 26.7 % (19-41); Mean Corp Hgb Conc 34.7 g/dL (32-36); Mean Corpuscular Hgb 32.4 pg (27.0-32.0); Mean Corpuscular Volume 93.4 fL (80-94); Mean Platelet Vol. 9.2 fl (6.2-12.0); Monocyte# 0.44 X10^3/uL; Monocyte% 6.5 % (0-10); NRBC Flagged by Analyzer 0 % (0-5); Neutrophil # 4.37 X10^3/uL (2.7-7.7); Neutrophil % 64.5 % (47-70); Platelet Count 263 K/mm3 (150-450); RBC Distribution Width CV 11.9 % (11.6-14.6); RBC Distribution Width SD 41.1 fl (35.1-43.9); Red Blood Count 5.03 M/mm3 (4.6-6.2); White Blood Count 6.8 K/mm3 (4.4-11.0)
[2023-12-11 11:23] LABS: International Normalized Ratio 1.2; Prothrombin Time (Protime)PT. 14.8 SECONDS (11.7-14.9)
[2023-12-11 11:24] LABS: Partial Thromboplast Time 27.6 Seconds (24.1-36.2)
[2023-12-11 11:41] LABS: Anion Gap 0 (5-15); BUN 12 mg/dL (7-18); BUN/Creat Ratio 13.7 RATIO (10-20); Calcium,Total 9.4 mg/dL (8.5-10.1); Chloride 107 mmol/L (98-107); Creatinine, Serum 0.87 mg/dL (0.70-1.30); EST Glomerular Filtration Rate 91 mL/min (>60); Est Glom Filt Rate - Afr Amer 110 mL/min (>60); Glucose 101 mg/dL (74-106); Sodium Level 138 mmol/L (136-145)
[2023-12-11 12:08] LABS: Magnesium 2.4 mg/dL (1.6-2.6)
[2024-01-01] VITALS (14 sets, daily range): BP systolic 116–157; BP diastolic 80–95; PULSE 63–94; RESP 14–16; TEMP 36.3–36.9; O2SAT 94–100; BMI 24.0
[2024-01-01] MEDS: Acetaminophen 500 MG Tablet 1000 MG PO ×2 (08:44→21:11)
[2024-01-01] MEDS: Gabapentin 600 MG Tablet PO (08:45)
[2024-01-01] MEDS: Magnesium 1 GM over 15 mins IV (08:51)
[2024-01-01] MEDS: Lactated Ringers 1,000 ML 999 ML IV (08:51)
--- NOTE | 2024-01-01 08:54 | PCM.PRE.AN2 ---
ASA Classification* ASA Classification ASA Classification: 3 Assessment & Plan Anesthesia* Anesthesia Assessment Anesthesia Assessment: Discussed sedation and/or anesthesia options, risks, benefits, and alternatives with patient/parents/legal guardian/POA. Questions invited. The patient/parents/legal guardian/POA seems to understand and agrees to proceed with anesthesia plan. Reviewed the physical assessment, medical history, allergy history and patient home medications list prior to surgery/procedure/anesthetic and documented any changes. Performed airway and anesthesia risk assessments. Anesthesia Type Anesthesia Type: General (see written pre anesthesia record for full assessment) Anesthesia Focused Assessment* Temperature: 98 F Pulse Rate: 82 Blood Pressure: 116/82 Respiratory Rate: 16 Pulse Ox: 100 Airway Assessment Mouth opens: >3 cm Mallampati Score: II Focused Labs Anesthesia Preop lab: CBC WBC 6.8 K/mm3 (4.4-11.0) 12/11/23 10:23 RBC 5.03 M/mm3 (4.6-6.2) 12/11/23 10:23 Hgb 16.3 g/dL (13.0-16.5) 12/11/23 10:23 Hct 47.0 % (40-54) 12/11/23 10:23 Plt Count 263 K/mm3 (150-450) 12/11/23 10:23 CHEMISTRY Potassium 4.0 mmol/L (3.5-5.1) 12/11/23 10:23 Sodium 138 mmol/L (136-145) 12/11/23 10:23 Magnesium 2.4 mg/dL (1.6-2.6) 12/11/23 10:23 BUN 12 mg/dL (7-18) 12/11/23 10:23 Creatinine 0.87 mg/dL (0.70-1.30) 12/11/23 10:23 Glucose 101 mg/dL (74-106) 12/11/23 10:23 TSH 0.82 uIU/mL (0.358-3.74) 07/03/23 13:20 COAG PT 14.8 SECONDS (11.7-14.9) 12/11/23 10:23 Pre-Assessment Diagnosis/Proposed Procedure Planned Operative Procedure(s): Post Lum Interbody Fusion Watt Two Level Anesthesia History Anesthesia History - utilization reviewer: Anesthesia History - utilization reviewer Hx Hospitalization No 12/08/23 10:33 Any Problems With Anesthesia No 12/08/23 10:33 Cholinesterase deficiency No 12/08/23 10:33 You/Your Family Experience No 12/08/23 10:33 fever (hyperthermia) with Relationship Recent Exposure to Contagious No 01/01/24 08:34 Disease Does patient have nerve Yes: INSTRUCTED TO TURN OF 12/08/23 10:33 stimulator FOR OR Patient instructed to have device shut off --Does patient have Pacemaker No 01/01/24 08:34 or ICD? When Was Last Pacemaker Check QUESTION #4 FULL TEXT: You/Your Family Experience fever (hyperthermia) with Anesthesia Last Oral Intake Last Oral intake: Last Oral Intake NPO since 07:15 01/01/24 08:34 Meds taken in AM with sips of Yes 01/01/24 08:34 water? Meds patient instructed to see mar 01/01/24 08:34 take am of surgery PONV PONV - utilization reviewer: PONV - utilization reviewer Female No 12/08/23 10:33 HX of Motion Sickness No 12/08/23 10:33 HX of N/V After Surgery Yes 12/08/23 10:33 Non-Smoker Yes 12/08/23 10:33 Duration of Surgery greater Yes 12/08/23 10:33 than 60 minutes Number of Risk Factors 3 12/08/23 10:33 PONV Score Moderate Risk 12/08/23 10:33 Height & Weight Height & Weight: Anesthesia: Height & Weight Height 5 ft 10 in 01/01/24 08:34 Weight: 76.204 kg 01/01/24 08:34 Body Mass Index (BMI) 24.0 01/01/24 08:34 Respiratory Assessment Respiratory Assessment - utilization reviewer: Respiratory Tract Infection Hx - utilization reviewer Hx Respiratory Tract Infection No 12/08/23 10:33 STOP Sleep Apnea STOP Sleep Apnea - utilization reviewer: STOP Sleep Apnea - utilization reviewer Hx Hypertension Yes: CONTROLLED WITH MED 12/08/23 10:33 Hx Sleep Apnea Yes 12/08/23 10:33 CPAP Yes: NO LONGER/USES MOUTH 12/08/23 10:33 RAMONITA BIPAP No 12/08/23 10:33 Do you snore loudly (louder than talking or can be heard Do you often feel tired/ fatigued/ sleepy during daytime? Has anyone observed you stop breathing during sleep? STOP Results Positive 12/08/23 10:33 QUESTION #5 FULL TEXT : Do you snore loudly (louder than talking or can be heard through closed doors)? Tobacco Use History Tobacco Use History - utilization reviewer: Tobacco Use History - utilization reviewer Tobacco Use Smoking Status Never smoker 12/08/23 10:33 Hx Tobacco Use No 12/08/23 10:33 Years Smoking Packs Smoked per Day Smoking Cessation Date was within the last 15 years Hx Smoking Cessation Date Hx Smoking Cessation Counseling Hematologic Medial History Hematologic Hx - utilization reviewer: Hematologic Medical Hx - staff writer Hx of Blood Transfusion Yes 12/08/23 10:33 Hx of Transfusion in last 3 No 12/08/23 10:33 Months Date of Last Transfusion (if within last 3 months) Ever experience any problems No 12/08/23 10:33 with transfusion(s)? Specify any problems Hx of Preganancy in last 3 N/A 12/08/23 10:33 Months Nurse Filling Out Transfusion VCHRISTIN 12/08/23 10:33 & Questions: Date: 12/08/23 12/08/23 10:33 Time: 10:34 12/08/23 10:33 Patient unable to answer at this time (ie. confused, unrespo /Reproduction History /Reproductive History - utilization reviewer: /Reproductive Hx- utilization reviewer Hx Now Gestational Age (in weeks): EDC: Hx Hx Para Hx Section SAB No 12/08/23 10:33 Active Medications Active Medications: Current Medications Generic Name Dose Route Start Last Admin Trade Name Haley PRN Reason Stop Dose Admin Acetaminophen 1,000 mg 01/01/24 10:30 01/01/24 08:44 Acetaminophen 500 Mg Tablet PO 01/01/24 10:31 1,000 mg X1 ONE Administration Lactated Ringer's 1,000 mls @ 999 mls/hr 01/01/24 10:30 01/01/24 08:51 IV 01/01/24 11:30 999 mls/hr .Q1H1M JOHN Administration Cefazolin Sodium 2 gm/ Sodium 110 mls @ 150 mls/hr 01/01/24 10:30 Chloride IV 01/01/24 11:13 PREOP ONE Lactated Ringer's 1,000 mls @ 999 mls/hr 01/01/24 11:30 IV 01/01/24 12:30 .Q1H1M JOHN Lactated Ringer's 1,000 mls @ 125 mls/hr 01/01/24 12:30 IV 01/01/24 20:29 .Q8H JOHN Magnesium Sulfate 1 gm/ 102 mls @ 408 mls/hr 01/01/24 10:30 01/01/24 08:51 Dextrose IV 01/01/24 10:44 408 mls/hr X1 ONE Administration Insulin Human Lispro 1 - 6 unit 01/01/24 10:30 Insulin Lispro 100 Unit/Ml Insuln.Pen SC 01/01/24 16:30 Q4H PRN PRN BG>/= 180, SEE PROTOCOL Protocol PFSH Medical History High cholesterol Back pain Sleep apnea Hypertension History of echocardiogram Cardiology follow-up encounter Facet arthritis, degenerative, L5-S1 level, lumbosacral spine Aortic stenosis Aortic valve sclerosis PFO (patent foramen ovale) ED (erectile dysfunction) Systolic murmur Anxiety Lumbar spondylolysis Osteoarthritis of hip Insomnia PLMD (periodic limb movement disorder) BENJI (obstructive sleep apnea) Essential (primary) hypertension Wears glasses Arthritis Family history of periodic limb movement disorder Injury of head and neck Injury of back Syncope Gastric reflux Non-smoker CPAP (continuous positive airway pressure) dependence History of pain when walking History of edema History of stress test History of irregular heartbeat Sinusitis Sleep disorder Hyperlipidemia Home Medications ?Medication ?Instructions ?Recorded ?Last Taken ?Type hydrocodone-acetaminophen 5-325mg 1 tab PO BID PRN Pain 08/20/22 Unknown History 5mg-325mg zolpidem 10 mg tablet 10 mg PO QHS PRN insomnia 08/20/22 Unknown History lisinopril 20 mg tablet 20 mg PO DAILY #90 tabs 08/12/23 01/01/24 05:00 Rx aspirin 81 mg tablet,delayed 81 mg PO DAILY #100 tabs 08/29/23 12/24/23 Rx release (Adult Aspirin Regimen) pregabalin 150 mg capsule 150 mg PO DAILY 12/08/23 Unknown History Allergy/AdvReac Type Severity Reaction Status Date / Time No Known Allergies Allergy Verified 01/01/24 08:29 Family History Mother Thyroid disorder Father , 76 Heart disease Grandfather Pulmonary emphysema Grandfather CVA (cerebral vascular accident) Grandmother Bleeding disorder Brother Cancer prostate-stage 4 Surgical History Hx of shoulder surgery History of laparoscopic cholecystectomy Hx of surgical procedure History of total hip replacement History of esophageal surgery Hx of tonsillectomy Hx of nasal septoplasty Hx laparoscopic cholecystectomy Hx of neck surgery Hx of rotator cuff surgery Hx of colonoscopy Social History Smoking Status: Never smoker alcohol intake: former substance use type: does not use caffeine: Yes Type: coffee Number of servings: 3 Review of Systems (Anesthesia) ROS Narrative System reviewed and no additional complaints, except as documented.
[2024-01-01 10:57] LABS: Bedside Glucose 114 mg/dL (74-106)
--- NOTE | 2024-01-01 12:05 | PCM.OPRPT ---
Report of Operation Date of Procedure: 01/01/24 Description of Surgical Findings:: Preop diagnosis: 1. Lumbar stenosis, L4-5 and L5-S1 with spondylosis 2. Lumbar degenerative disc disease L4-5 and L5-S1 Postop diagnosis: 1. Lumbar stenosis, L4-5 and L5-S1 with spondylosis 2. Lumbar degenerative disc disease L4-5 and L5-S1 Procedures performed: 1. L4-5 posterior lumbar interbody fusion 2. L5-S1 posterior lumbar interbody fusion 3. Insertion of intervertebral biomechanical device x2 4. Structural allograft for spinal fusion 5. L4 bilateral laminectomies, foraminotomies, facetectomies, decompression of bilateral nerve roots 6. L5 bilateral laminectomies, foraminotomies, facetectomies, decompression of bilateral nerve roots 7. S1 bilateral laminectomies, foraminotomies, facetectomies, decompression of bilateral nerve roots 8. L4-5 and L5-S1 posterolateral fusion 9. Pedicle screw fixation 10. Local autograft for spinal fusion 11. Neuro monitoring bilateral upper and bilateral lower extremities Statement of medical necessity: The patient is a 73-year-old male with intractable back and leg pain. Image studies confirm the above diagnoses. They have failed conservative treatments to include medications physical therapy and injections and have opted for operative intervention understanding the risk to include but not limited to infection, bleeding, damage to nerves arteries and veins, possibility of spinal fluid leak, nonunion, hardware failure, continued pain, need for further surgery, deep vein thrombosis, pulmonary embolism, heart attack, risk of stroke or . Description of the procedure: The patient was identified in the preoperative holding area. There they received preoperative IV antibiotics and was then transferred to the operative suite. Once in the operative suite after general endotracheal anesthesia was established, the patient was positioned prone on the [place] operating table. All bony prominences were padded accordingly. The lumbar spine was prepped and draped in a standard fashion. Bear hugger's were not turned on until the drapes were placed and sealed with Ioban. A midline incision was made and taken down to the fascia. The fascia was divided and subperiosteal dissection was taken down to the level of the transverse processes and sacral ala of L4, L5, and S1 bilaterally. Deep retractors were placed. A bone scalpel was used to make cuts in the lamina and then a series of rongeurs and Kerrisons were used removing the spinous process and lamina of L4, L5, and S1. Then facetectomies of greater than 50% were performed as well as foraminotomies at L4-5 and L5-S1 bilaterally decompressing the bilateral nerve roots. Given the severity of the stenosis I needed to perform wide bilateral laminectomies and near complete facetectomies in order to decompress the neural elements thus creating instability necessitating the fusion. I then proceeded with interbody fusion. The nerve roots and dura were identified and retracted medially. A knife was utilized to perform an annulotomy at L4-5. Endplate elevators, curettes, and pituitaries were utilized to remove disc material. Endplates were prepared with a rasp. An appropriate sized intervertebral peek cage device measuring 11 mm was packed with structural allograft and impacted into position completing the posterior lumbar interbody fusion at the L4-5 level. The same steps were performed at L5-S1. An annulotomy was performed at L5-S1. Endplate elevators, curettes, and pituitaries were utilized to remove disc material. Endplates were prepared with a rasp. An appropriate sized intervertebral peek cage device measuring 9 mm was packed with morselized cancellous allograft and impacted into position completing the posterior lumbar interbody fusion at the L5-S1 level. I then proceeded with pedicle screw fixation. Starting points were found at the junction of the superior articular process and transverse processes of L4 and L5 and sacral ala at S1. A power bur was used for the starting points. Pedicle probes were placed bilaterally and then 6.5 x 55 mm screws were placed bilaterally at L4 and L5 and 6.5 x 50 mm screws were placed bilaterally at S1. The screws were tested with intraoperative neurophysiologic monitoring and tested within normal limits. Connector rods were applied and secured with set screws. I then proceeded with the posterolateral fusion. This was accomplished by decorticating the transverse processes bilaterally at L4 and L5 and the sacral ala bilaterally at S1. This decorticated bone was then bridged with local autograft from the decompression as well as morselized cancellous allograft completing the posterolateral fusion of the L4-5 and L5-S1 levels. The incision was thoroughly irrigated. Tisseel was placed over the dura as a hemostatic agent. The fascia was closed with #1 Vicryl, subcutaneous with 2-0 Vicryl and skin with 2-0 nylon. A sterile dressing was applied with 4 x 4's ABD and tape. Sponge instrument and needle counts were correct at the end of the case. Neurophysiologic monitoring was maintained at baseline throughout the duration of the case. The patient was extubated and taken to the PACU without incident Surgeon: Conrado Coyle Type of Anesthesia: General Estimated Blood Loss (mL): 500 cc Fluids Replaced: 2200 cc Grafts/Implants Used: Unified spine Complications None Admit VTE Documentation VTE Present on Admission: No
--- NOTE | 2024-01-01 12:09 | PCM.PN.ORT ---
Subjective Subjective Seen and examined postop. Resting comfortably. Pain controlled. No complaints Objective Data Objective Data Vital Signs: Vital Signs Temp Pulse Resp BP Pulse Ox O2 Del Method 98 F 82 16 116/82 H 100 Room Air 01/01/24 08:54 01/01/24 08:54 01/01/24 08:54 01/01/24 08:54 01/01/24 08:54 01/01/24 08:34 Oxygen Delivery Method Room Air Weight: 168 lb Body Mass Index (BMI) 24.0 Intake & Output: Intake and Output for Last 24 Hours 12/30/23 12/31/23 01/01/24 23:59 23:59 23:59 Intake Total 102 / 102 Balance 102 / 102 Lab / Micro Data 12/11/23 10:23 12/11/23 10:23 Labs: Laboratory Results - last 24 hr 01/01/24 08:40: POC Glucose 114 H Micro: Microbiology 12/24/23 08:39 Nasal Secretion Nasal Screen MRSA/MSSA - Final 12/11/23 10:23 Swab (Method) Nasal Screen MRSA/MSSA - Final Physical Exam Const alert, oriented x3 and no apparent distress General Appearance: cooperative, comfortable and well kempt HEENT normocephalic and head/scalp atraumatic Eyes EOMs intact bilaterally and conjunctivae normal Neck full ROM General: normal visual inspection Chest inspection of chest normal and palpation of chest normal Resp normal respiratory effort and normal air movement Cardio regular rate, regular rhythm and peripheral pulses 2+ throughout GI soft to palpation, non-tender and non-distended Back/Spine Back/Spine Narrative: Dressing clean dry and intact Cervical Spine: cervical ROM normal Thoracic Spine / Upper Back: normal to inspection Lumbar Spine / Lower Back: normal to inspection Extremity normal to inspection, full ROM, normal capillary refill, no clubbing, cyanosis or edema and no calf tenderness Skin no rashes or lesions noted General Skin Exam: no breakdown Neuro oriented x3, CN's II-XII intact bilaterally, moves all extremities, no focal motor deficits, no sensory deficits noted and deep tendon reflexes 2+ bilaterally Motor Exam: muscle tone normal throughout Assessment & Plan Assessment/Plan (1) Lumbar stenosis: PLAN: Okay to admit See orders Discharge planning, likely home tomorrow
--- NOTE | 2024-01-01 12:11 | PCM.DC.SUM ---
Providers Date of Admission: 01/02/24 Primary Care Physician: Dr. Juan J Wallace DO Reason For Visit: LUMBAR STENOSIS Diagnosis Discharge Diagnosis (1) Lumbar stenosis: Status: Acute Code(s): M48.061 - Spinal stenosis, lumbar region without neurogenic claudication Plan: Okay to admit See orders Discharge planning, likely home tomorrow Medications at Discharge Home Medications hydrocodone-acetaminophen 5-325mg 5mg-325mg 1 tab PO BID PRN Pain 08/20/22 zolpidem 10 mg tablet 10 mg PO QHS PRN insomnia 08/20/22 lisinopril 20 mg tablet 20 mg PO DAILY #90 tabs 08/12/23 pregabalin 150 mg capsule 150 mg PO DAILY 12/08/23 hydrocodone-acetaminophen 5-325mg 5mg-325mg 1 tab PO Q6H 7 days #28 tabs 01/01/24 Hospital Course Operations - (L4-5 and L5-S1 posterior lumbar interbody fusion, decompression, posterior spinal fusion with instrumentation, use of allograft) Summary of Care Provided Minutes Spent on Discharge: 15 Hospital Course: The patient is a 73-year-old male who underwent L4-S1 fusion on 01/01/2024. He was subsequently admitted. The hospitalist was consulted for medical management. The patient progressed well. His pain was controlled and he was mobilizing well. No significant medical issues were reported. He was subsequently discharged home on 01/03/2024 to follow-up with Dr. Anne 3 weeks Physical Exam Const alert, oriented x3 and no apparent distress General Appearance: cooperative, comfortable and well kempt Neck full ROM General: normal visual inspection Chest inspection of chest normal and palpation of chest normal Resp normal respiratory effort and normal air movement Effort and Inspection: able to speak in complete sentences Cardio regular rate and peripheral pulses 2+ throughout GI soft to palpation, non-tender and non-distended Back/Spine Back/Spine Narrative: Dressing clean dry and intact. Incision well-approximated with interrupted sutures in place. No tenderness erythema drainage or fluctuance Cervical Spine: cervical ROM normal Thoracic Spine / Upper Back: normal to inspection Lumbar Spine / Lower Back: normal to inspection Extremity normal to inspection, full ROM, normal capillary refill, no clubbing, cyanosis or edema and no calf tenderness Skin no rashes or lesions noted General Skin Exam: no breakdown Neuro oriented x3, CN's II-XII intact bilaterally, moves all extremities, no focal motor deficits, no sensory deficits noted and deep tendon reflexes 2+ bilaterally Motor Exam: strength 5/5 throughout and muscle tone normal throughout Weight / BMI Weight Weight: 168 lb Body Mass Index (BMI) 24.0 ABG / Lab / Microbiology Data 01/02/24 09:03 01/02/24 09:03 Laboratory: Laboratory Results - last 24 hr 01/01/24 08:40: POC Glucose 114 H Microbiology: Microbiology 12/24/23 08:39 Nasal Secretion Nasal Screen MRSA/MSSA - Final 12/11/23 10:23 Swab (Method) Nasal Screen MRSA/MSSA - Final D/C Instructions Additional Activity Instructions: Wear back brace at all times. No repetitive bending twisting or lifting more than 5 pounds Call your doctor if your incision/area has: Continuous Slow Oozing, Sudden Increased Bleeding, Increased Pain/ Swelling, Increased Redness, Foul Smelling Discharge and Swelling at the incision site Call your doctor if you observe: Fever of 101 or Higher, Coldness, Increased Pain, Numbness or Tingling, Change in Color, Inability to urinate, Inability to have a bowel movement, Using more than 1 pad per hour, Shortness of breath, Dizziness, Fainting spells, Swelling in the ankles, Chest pain, Prolonged hiccupping, Increased palpitations (irregular heartbeat), Calf discomfort and Uncontrolled pain Additional Dressing/Incision Instructions: Change dressing daily with dry gauze and tape. Additional Instructions: 1. During your procedure, you received sedation through your IV. Please follow these instructions for the next 24 hours: Do not drive a motor vehicle, do not drink any alcoholic beverages, and do not sign any legal documents or make personal or business decisions. A responsible adult should stay with you at least 6 hours after the procedure. 2. Keep your surgical site/incision clean and the dressing dry and intact. You may use an ice pack at the surgical site to reduce any swelling or discomfort. 3. Monitor the incision site for any signs or symptoms of infection. Watch for redness, excessive swelling or drainage, or continued pain at the incision site after 3 days. Contact your physician immediately for a fever, chills or a temperature of 101.5? F or greater. 4. Take your medication exactly as prescribed by your physician. Do not attempt to wean yourself off any of your medications even though your pain is improving. This process needs to be carefully monitored by your doctor. Take any antibiotics prescribed exactly as directed and until they are gone. 5. Avoid stretching, bending, pulling, twisting or any sudden movements. Do not bend or twist at the waist. Wear back brace at all times 6. No lifting greater than 5 pounds. 7. Do not operate a motor vehicle, equipment or a power tool while taking pain medication 8. Do not have any manipulation done by a chiropractor or any other physician without first consulting with the surgeon 9. Please contact our office if you are even scheduled for a CT scan or an MRI. 10. Please call us if you have any questions, problems or concerns. Please Follow Up With: Conrado Coyle DO When: 3 weeks Meaningful Use Info Meaningful Use Meaningful Use Diagnoses (Choose all that apply): None applicable Ischemic Stroke Statin Dosing Therapy Reference: STATIN DOSE THERAPY REFERENCE: * Patients > 75 years receive moderate or high dose statin therapy. * Patients 75 years or YOUNGER should receive HIGH intensity statin dose unless contraindicated. You will be required to document reason for non-treatment if statin daily dose does not meet guidelines. HIGH DOSE STATIN THERAPY DAILY Atorvastatin > than or = to 40 mg Rosuvastatin > than or = to 20 mg Amlodipine + Atorvastatin > than or = to 2.5/40 mg Ezetimibe + Simvastatin 10/80 mg Simvastatin 80mg Discharge Plan Admission Admit Date/Time: 01/02/24 15:21 Attending Provider: Conrado Coyle Primary Care Provider: Juan J Wallace Consulting Providers: Maxime Maravilla; Maciel Mendoza; Richar Paz Instructions Additional Instructions / Restrictions: 1. During your procedure, you received sedation through your IV. Please follow these instructions for the next 24 hours: Do not drive a motor vehicle, do not drink any alcoholic beverages, and do not sign any legal documents or make personal or business decisions. A responsible adult should stay with you at least 6 hours after the procedure. 2. Keep your surgical site/incision clean and the dressing dry and intact. You may use an ice pack at the surgical site to reduce any swelling or discomfort. 3. Monitor the incision site for any signs or symptoms of infection. Watch for redness, excessive swelling or drainage, or continued pain at the incision site after 3 days. Contact your physician immediately for a fever, chills or a temperature of 101.5? F or greater. 4. Take your medication exactly as prescribed by your physician. Do not attempt to wean yourself off any of your medications even though your pain is improving. This process needs to be carefully monitored by your doctor. Take any antibiotics prescribed exactly as directed and until they are gone. 5. Avoid stretching, bending, pulling, twisting or any sudden movements. Do not bend or twist at the waist. Wear back brace at all times 6. No lifting greater than 5 pounds. 7. Do not operate a motor vehicle, equipment or a power tool while taking pain medication 8. Do not have any manipulation done by a chiropractor or any other physician without first consulting with the surgeon 9. Please contact our office if you are even scheduled for a CT scan or an MRI. 10. Please call us if you have any questions, problems or concerns. Discharge Orders/Prescriptions Prescriptions: New hydrocodone-acetaminophen 5-325 mg tablet 1 tab PO Q6H 7 Days Qty: 28 0RF Continued zolpidem 10 mg tablet 10 mg PO QHS PRN (Reason: insomnia) hydrocodone-acetaminophen 5-325 mg tablet 1 tab PO BID PRN (Reason: Pain) pregabalin 150 mg capsule 150 mg PO DAILY lisinopril 20 mg tablet 20 mg PO DAILY Qty: 90 3RF Discontinued aspirin [Adult Aspirin Regimen] 81 mg tablet,delayed release (DR/EC) 81 mg PO DAILY Qty: 100 3RF Referrals / Follow Up: Conrado Coyle DO [Med Staff - Active Staff] - Juan J Wallace DO [Primary Care Provider] - Disposition Disposition (needs filled in before D/C Order can be placed): Home, Self Care
[2024-01-01] MEDS: Cefazolin 2 GM in 0.9% Normal Saline (100mL Bag) 100 ML IV (12:54)
--- NOTE | 2024-01-01 13:11 | RAD_ITS ---
STUDY: X-RAY - LUMBAR SPINE REASON FOR EXAM: Male, 73 years old. POST LUM INTERBODY FUSION TWO LEVELS TECHNIQUE: 2 view(s) of the lumbar spine were obtained. COMPARISON: 07/24/2023 FINDINGS: Fluoroscopy of the lumbar spine was utilized for her during discectomy, interbody fusion, transpedicular fixation of the lower lumbar spine and to images dated for interpretation. . RAD/Lumbar Spine 2 or 3 Views IMPRESSION: Fluoroscopy during lumbar spine surgery. Electronically Signed: Calderon Kolb MD at 17:05 EDT ,
[2024-01-01] MEDS: Heparin 10,000 UNITS/10 ML Vial 10000 UNITS (13:39)
[2024-01-01] MEDS: THROMBIN (RECOMBINANT) 20,000 UNIT VIAL 20000 UNIT TOPICAL (13:39)
[2024-01-01] MEDS: Bupivacaine 0.25% 30 ML Vial (15:08)
--- NOTE | 2024-01-01 17:09 | PCM.POST.ANE ---
Anesthesia: Postop Eval I Current Vital Signs Temperature: 98.4 F Pulse Rate: 94 Blood Pressure: 156/82 Respiratory Rate: 16 Pulse Ox: 94 Oxygen Delivery Method: Room Air Assessment Airway patent: Yes Spontaneous unlabored respirations: Yes Mental status: Awake and Calm nausea: No Vomiting: No Anesthesia Complication: No Fluid Hydration Crystalloid volume administer (ml): 1,200 Blood Product volume administered (ml): 185 Total IV fluid infused: 1,385 Progress Note Anesthesia document: Postop Eval 1 completed: Yes
[2024-01-01] MEDS: Lactated Ringers 1,000 ML 100 ML IV (18:33)
--- NOTE | 2024-01-01 19:18 | CON.PCM.HO_ITS ---
Assessment & Plan Assessment/Plan (1) Lumbar stenosis: PLAN: Plan 1. Perioperative management of lumbar spinal stenosis L4-5 and L5-S1 with spondylosis: Patient had elective surgery today, 01/01/2024. He had L4 of coagula L5 and S1 bilateral laminectomies with decompression of bilateral nerve roots, L4-5 and L5-S1 posterolateral fusion with pedicle screw fixation. Pain control, muscle relaxant, PT, OT and incentive spirometry. Bowel and bladder care. Patient has Roman catheter draining clear urine. 2. Paroxysmal A-fib: Preop twelve-lead EKG reviewed. Last EKG November 2023 shows junctional rhythm/sinus rhythm with a small inconspicuous P wave at 63 bpm, QTc 403 ms. Previous EKG on February 07, 2023 was normal sinus to 69 beats per 1. 3. Mild aortic stenosis with mild PFO: Patient had echo on November 05, 2023 reported as EF 60% with mild aortic stenosis. Patient does not have leg swelling, shortness of breath, dyspnea on exertion or orthopnea. 4. Essential hypertension: BP is 157/95, acceptable range. Antihypertensive medication is resumed. 6. Dyslipidemia: On a statin. DVT prophylaxis: DVT prophylaxis as per discretion of the operating surgeon. Bilateral thigh-high ARPAN hose. HPI Consult Data Date of Consult: 01/01/24 HPI Narrative Reason for Consultation: Perioperative management after laminectomy surgery HPI Narrative: CONCETTA SHIPLEY, is a 73 M is admitted after elective laminectomy surgery. Patient had chronic lower back pain due to lumbar spinal stenosis with degenerative arthritis. Recalcitrant to conservative management. Patient was seen on the [facility] floor. Complain of mild expected back pain after surgery. Has Roman catheter, draining clear urine. Had bowel movement a day before yesterday. Denies chest pain, shortness of breath, palpitation. No ankle edema, orthopnea or PND. Patient has history of mild aortic stenosis and paroxysmal A-fib. Patient stated he was a started on baby aspirin and then was held a week before prior to the surgery. He is not on an anticoagulant agent. ON LICENSE OF [facility] Medical History High cholesterol Back pain Sleep apnea Hypertension History of echocardiogram Cardiology follow-up encounter Facet arthritis, degenerative, L5-S1 level, lumbosacral spine Aortic stenosis Aortic valve sclerosis PFO (patent foramen ovale) ED (erectile dysfunction) Systolic murmur Anxiety Lumbar spondylolysis Osteoarthritis of hip Insomnia PLMD (periodic limb movement disorder) BENJI (obstructive sleep apnea) Essential (primary) hypertension Wears glasses Arthritis Family history of periodic limb movement disorder Injury of head and neck Injury of back Syncope Gastric reflux Non-smoker CPAP (continuous positive airway pressure) dependence History of pain when walking History of edema History of stress test History of irregular heartbeat Sinusitis Sleep disorder Hyperlipidemia Home Medications ?Medication ?Instructions ?Recorded ?Last Taken ?Type hydrocodone-acetaminophen 5-325mg 1 tab PO BID PRN Pain 08/20/22 Unknown History 5mg-325mg zolpidem 10 mg tablet 10 mg PO QHS PRN insomnia 08/20/22 Unknown History lisinopril 20 mg tablet 20 mg PO DAILY #90 tabs 08/12/23 01/01/24 05:00 Rx pregabalin 150 mg capsule 150 mg PO DAILY 12/08/23 Unknown History hydrocodone-acetaminophen 5-325mg 1 tab PO Q6H 7 days #28 tabs 01/01/24 Unknown Rx 5mg-325mg Allergy/AdvReac Type Severity Reaction Status Date / Time No Known Allergies Allergy Verified 01/01/24 08:29 Family History Mother Thyroid disorder Father , 76 Heart disease Grandfather Pulmonary emphysema Grandfather CVA (cerebral vascular accident) Grandmother Bleeding disorder Brother Cancer prostate-stage 4 Surgical History Hx of shoulder surgery History of laparoscopic cholecystectomy Hx of surgical procedure History of total hip replacement History of esophageal surgery Hx of tonsillectomy Hx of nasal septoplasty Hx laparoscopic cholecystectomy Hx of neck surgery Hx of rotator cuff surgery Hx of colonoscopy Social History Smoking Status: Never smoker alcohol intake: former substance use type: does not use caffeine: Yes Type: coffee Number of servings: 3 ROS ROS Narrative Constitutional: Reports fatigue and weakness. No fever. HEENT: Reports systems reviewed and no addt'l complaints, except as documented Respiratory/Chest: No acute shortness of breath or respiratory distress or wheezing. CVS: Denies chest pain pressure or tightness. Gastrointestinal: Denies coffee ground emesis, hematemesis or vomiting Genitourinary: Denies burning urination or new urinary tract symptoms Musculoskeletal: Denies acute joint pain or limited range of motion. No acute injury Spine: Chronic lumbar spinal stenosis Neurologic: Denies seizure-like symptoms. skin: No ulcer. No rash Endocrinology: Reports systems reviewed and no addt'l complaints, except as documented Hematologic/Lymphatic: Reports systems reviewed and no addt'l complaints, except as documented Rest 14 ROS are negative except as mentioned in HPI Physical Exam Narrative General: Alert, Oriented x3, Cooperative HEENT: Atraumatic, PERRLA, EOMI, Normocephalic Oral: No Gingival or Mucosal Lesions/ Ulcerations Neck: Supple, No JVD, Negative Carotid Bruits Chest wall/Lungs: Air entry diminished in bilateral lung bases. No crepitation/rhonchi Cardiovascular: Sinus rhythm, Normal S1, Normal S2, systolic murmur over right second ICS with carotid radiation, mild grade 4/6. Abdomen: Bowel Sounds Present, Soft, Non Tender, Non-Distended : No dysuria. No renal angle tenderness. No suprapubic tenderness. Extremities: No edema, Capillary Refill Less than 3 Seconds Skin: No rashes, No breakdown Musculoskeletal: No Tenderness to Palpation of Joints or Extremities. Status post bilateral hip replacement. Spine: Surgical dressing is dry. Mild perioperative tenderness. No hematoma. Neurological: Cranial nerves II-XII grossly intact, DTR 2+/4. No acute focal neurological deficit. Psych/Mental Status: Normal Affect, Appropriate. Lab / Micro Data 12/11/23 10:23 12/11/23 10:23 Labs: Laboratory Results - last 24 hr 01/01/24 08:40: POC Glucose 114 H Charges/Coding Visit Charges Office Visits / Consults: [id number] OP Consult L4
[2024-01-01] MEDS: Cefazolin 1 GM/50 ML BAG IV (21:11)
[2024-01-01] MEDS: Ondansetron 4 MG/2 ML Vial IV (21:28)
[2024-01-01] MEDS: Pregabalin 75 MG Capsule 150 MG PO (21:29)
[2024-01-01] MEDS: Zolpidem Tartrate 5 MG Tablet 10 MG PO (23:16)
[2024-01-02] VITALS (10 sets, daily range): BP systolic 89–157; BP diastolic 48–96; PULSE 66–88; RESP 16–18; TEMP 36.4–37.2; O2SAT 88–100
[2024-01-02] MEDS: oxyCODONE 5 MG Tablet PO ×3 (06:26→21:32)
[2024-01-02] MEDS: Ondansetron 4 MG/2 ML Vial IV ×2 (06:26→15:08)
[2024-01-02] MEDS: Cefazolin 1 GM/50 ML BAG IV (06:30)
[2024-01-02] MEDS: Acetaminophen 500 MG Tablet 1000 MG PO ×3 (06:30→22:14)
--- NOTE | 2024-01-02 06:59 | PCM.PN.ORT ---
Subjective Subjective Seen and examined postop day 1. Lying in bed resting comfortably. Patient complains of soreness in the lower back especially with movement. Denies any acute numbness tingling weakness. He has been out of bed and ambulated a short distance. Back pain is his only complaint, especially with ambulation Objective Data Objective Data Vital Signs: Vital Signs Temp Pulse Resp BP Pulse Ox O2 Del Method O2 Flow Rate 97.6 F L 67 16 130/94 H 100 Nasal Cannula 2 01/02/24 06:20 01/02/24 06:20 01/02/24 06:20 01/02/24 06:20 01/02/24 06:20 01/02/24 06:20 01/02/24 06:20 Oxygen Flow Rate (L/min) 2 Oxygen Delivery Method Nasal Cannula Weight: 168 lb Body Mass Index (BMI) 24.0 Intake & Output: Intake and Output for Last 24 Hours 12/31/23 01/01/24 01/02/24 23:59 23:59 23:59 Intake Total 3742 / 3742 1200 / 1200 Output Total 300 / 300 1650 / 1650 Balance 3442 / 3442 -450 / -450 Lab / Micro Data 12/11/23 10:23 12/11/23 10:23 Labs: Laboratory Results - last 24 hr 01/01/24 08:40: POC Glucose 114 H Micro: Microbiology 12/24/23 08:39 Nasal Secretion Nasal Screen MRSA/MSSA - Final 12/11/23 10:23 Swab (Method) Nasal Screen MRSA/MSSA - Final Physical Exam Const alert, oriented x3 and no apparent distress General Appearance: cooperative, comfortable and well kempt Neck full ROM General: normal visual inspection Resp normal respiratory effort and normal air movement Effort and Inspection: able to speak in complete sentences Cardio regular rate and peripheral pulses 2+ throughout GI soft to palpation, non-tender and non-distended Back/Spine Back/Spine Narrative: Dressing clean dry and intact Cervical Spine: cervical ROM normal Thoracic Spine / Upper Back: normal to inspection Lumbar Spine / Lower Back: normal to inspection Extremity normal to inspection, full ROM, normal capillary refill, no clubbing, cyanosis or edema and no calf tenderness Skin no rashes or lesions noted General Skin Exam: no breakdown Neuro oriented x3, CN's II-XII intact bilaterally, moves all extremities, no focal motor deficits, no sensory deficits noted and deep tendon reflexes 2+ bilaterally Motor Exam: strength 5/5 throughout and muscle tone normal throughout Assessment & Plan Assessment/Plan (1) Lumbar stenosis: PLAN: I had a lengthy discussion with the patient. He is doing well but mobilization is still limited secondary to pain. I recommend continuing pain controlled mobilization as tolerated with PT. Plan to hold discharge until the patient is mobilizing better and pain more controlled. He understands and agrees with the treatment plan
--- NOTE | 2024-01-02 07:33 | POSTOPAN2_ITS ---
Anesthesia Postop Eval I Sum Postop Eval Completion status Anesthesia document: Postop Eval 1 completed: Yes Anesthesia Postop Eval I Summary Anesthesia Postop Eval I Summary: Anesthesia Postop Eval I: Assessment Summary Airway patent Yes 01/01/24 17:09 [email or web address] [email or web address] Spontaneous unlabored Yes 01/01/24 17:09 SALESPERSON [email or web address] respirations Mental status Awake,Calm 01/01/24 17:09 SALESPERSON [email or web address] nausea No 01/01/24 17:09 SALESPERSON [email or web address] Vomiting No 01/01/24 17:09 SALESPERSON [email or web address] Anesthesia Postop Eval I: Fluid Summary Crystalloid volume administer 1,200 01/01/24 17:09 SALESPERSON [email or web address].OT (ml) Colloids volume administered ( ml) Blood Product volume 185 01/01/24 17:09 SALESPERSON [email or web address].OT administered (ml) Total IV fluid infused 1,385 01/01/24 17:09 SALESPERSON [email or web address] Anesthesia Postop Eval I: Summary Notes Anesthesia Complication No 01/01/24 17:09 SALESPERSON [email or web address] Anesthesia Complication Comment: Post-operative progress note Anesthesia: Postop Eval II Evaluation Mental status: Awake Pain Level: 0 nausea: No Vomiting: No
--- NOTE | 2024-01-02 07:33 | PCM.POSTANE2 ---
Anesthesia Postop Eval I Sum Postop Eval Completion status Anesthesia document: Postop Eval 1 completed: Yes Anesthesia Postop Eval I Summary Anesthesia Postop Eval I Summary: Anesthesia Postop Eval I: Assessment Summary Airway patent Yes 01/01/24 17:09 REHABILITATION [email or web address] Spontaneous unlabored Yes 01/01/24 17:09 REHABILITATION [email or web address] respirations Mental status Awake,Calm 01/01/24 17:09 REHABILITATION COORDINATOR.OT nausea No 01/01/24 17:09 REHABILITATION COORDINATOR.OT Vomiting No 01/01/24 17:09 REHABILITATION [email or web address] Anesthesia Postop Eval I: Fluid Summary Crystalloid volume administer 1,200 01/01/24 17:09 REHABILITATION COORDINATOR.OT (ml) Colloids volume administered ( ml) Blood Product volume 185 01/01/24 17:09 REHABILITATION COORDINATOR.OT administered (ml) Total IV fluid infused 1,385 01/01/24 17:09 REHABILITATION [email or web address].[email or web address] Anesthesia Postop Eval I: Summary Notes Anesthesia Complication No 01/01/24 17:09 REHABILITATION [email or web address].[email or web address] Anesthesia Complication Comment: Post-operative progress note Anesthesia: Postop Eval II Evaluation Mental status: Awake Pain Level: 0 nausea: No Vomiting: No
[2024-01-02 09:25] LABS: Hematocrit 40.8 % (40-54); Hemoglobin 14.3 g/dL (13.0-16.5); Mean Corpuscular Hgb 31.8 pg (27.0-32.0); Mean Corpuscular Volume 90.9 fL (80-94); Mean Platelet Vol. 9.5 fl (6.2-12.0); Platelet Count 216 K/mm3 (150-450); RBC Distribution Width CV 11.9 % (11.6-14.6); RBC Distribution Width SD 39.8 fl (35.1-43.9); Red Blood Count 4.49 M/mm3 (4.6-6.2); White Blood Count 14.6 K/mm3 (4.4-11.0)
[2024-01-02 09:51] LABS: Anion Gap 5 (5-15); BUN 10 mg/dL (7-18); BUN/Creat Ratio 10.5 RATIO (10-20); Calcium,Total 8.6 mg/dL (8.5-10.1); Chloride 106 mmol/L (98-107); Creatinine, Serum 0.95 mg/dL (0.70-1.30); EST Glomerular Filtration Rate 82 mL/min (>60); Est Glom Filt Rate - Afr Amer 100 mL/min (>60); Estimated Creatinine Clearance 70.44 ml/min; Glucose 134 mg/dL (74-106); Potassium 3.7 mmol/L (3.5-5.1); Sodium Level 138 mmol/L (136-145)
[2024-01-02] MEDS: Lactated Ringers 1,000 ML 15 ML IV (10:32)
--- NOTE | 2024-01-02 12:27 | CASEMGMT ---
VILLA ISBELL Assessment Face to Face with patient for initial transition planning/care coordination assessment. VILLA ISBELL introduced self and role at [facility], pt voices understanding. Pt is A&Ox4 and is resting comfortably in bed and is calm. Care providers, pharmacy, and demographics verified. Admitting dx: Lumbar Stenosis LACE Strata: 1 PCP: Juan J Wallace Specialists: Ciro SWEENEY (PM), Leonides (Ortho) Preferred Pharmacy: [facility] Insurance: [facility] A/B, [place] Prescription Benefit: Yes LNOK: Anamaria Angel (W) Living Arrangements: Pt lives with his in a two story home with 3 steps to enter ADLs/IADLs: Ind. Pt used to go to a gym 4-5 times per week but stopped going x 6 weeks ago d/t pain. Pt is able to help assist the pt Transportation: Self, . will drive pt home at time of DC DME: Cane, FWW, GB, paper wood cutter, sock aid, raised toilet seat, back brace HHC/SNF: Denies history or needs Pt?s goal: Home Plan: Home with pt . PT is not recommending additional therapy at this time. Per the MD, the pt will DC home tomorrow d/t his pain. Pt has a back brace on currently and was provided with education. Pt states that he has an appt with Dr. Coyle on Jan 23. Pt states that Dr. Coyle advised the pt to DC home without therapy and to wear the back brace x 6-8 weeks and then start P subsequently. Pt denies current needs and states that he feels safe with this plan moving forward. Owen Grimm RN, CM
--- NOTE | 2024-01-02 12:29 | PN.HOSP_ITS ---
Reason for Visit Reason for Visit: Diagnoses Spinal stenosis, lumbar region without neurogenic claudication (01/01/24) Encounter for other preprocedural examination (01/01/24) Subjective Subjective Saw patient at bedside this morning. Patient was laying comfortably in bed, conversing normally, in no acute distress. He had just worked with therapy and did report ongoing low back pain but the radiculopathy was improved. Per orthopedics, plan is tentatively to keep patient hospitalized till tomorrow and then home tomorrow with outpatient physical therapy. Notably, patient did not have any home physical therapy needs per therapy scores today. No other new concerns today. Objective Data Objective Data Vital Signs: Vital Signs Temp Pulse Resp BP Pulse Ox O2 Del Method O2 Flow Rate 97.9 F 78 16 89/48 L 99 Room Air 2 01/02/24 10:14 01/02/24 10:14 01/02/24 10:14 01/02/24 10:14 01/02/24 10:14 01/02/24 10:14 01/02/24 06:20 Oxygen Flow Rate (L/min) 2 Oxygen Delivery Method Room Air Weight: 76.204 kg Body Mass Index (BMI) 24.0 Intake & Output: Intake and Output for Last 24 Hours 12/31/23 01/01/24 01/02/24 23:59 23:59 23:59 Intake Total 3742 / 3742 3918.25 / 3918.25 Output Total 300 / 300 1650 / 1650 Balance 3442 / 3442 2268.25 / 2268.25 Lab / Micro Data 01/02/24 09:03 01/02/24 09:03 Labs: Laboratory Results - last 24 hr 01/02/24 09:03: WBC 14.6 H, RBC 4.49 L, Hgb 14.3, Hct 40.8, MCV 90.9, MCH 31.8, MCHC 35.0, RDW Std Deviation 39.8, RDW Coeff of Cameron 11.9, Plt Count 216, MPV 9.5, Sodium 138, Potassium 3.7, Chloride 106, Carbon Dioxide 27.0, Anion Gap 5, BUN 10, Creatinine 0.95, Estim Creat Clear Calc 70.44, Est GFR (MDRD) Af Amer 100, Est GFR (MDRD) Non-Af 82, BUN/Creatinine Ratio 10.5, Glucose 134 H, Calcium 8.6 Micro: Microbiology 12/24/23 08:39 Nasal Secretion Nasal Screen MRSA/MSSA - Final 12/11/23 10:23 Swab (Method) Nasal Screen MRSA/MSSA - Final Physical Exam Const alert, oriented x3, no apparent distress and average body habitus Constitutional Narrative: Pleasant elderly male, laying comfortably in bed, conversing normally, in no acute distress. General Appearance: cooperative and comfortable HEENT normocephalic, head/scalp atraumatic, hearing grossly normal bilaterally, nasal mucous membranes and turbinates normal and moist oral mucous membranes Eyes PERRL, EOMs intact bilaterally and conjunctivae normal Neck full ROM Chest inspection of chest normal Resp normal respiratory effort, normal air movement, no use of accessory muscles and clear to auscultation bilaterally Cardio regular rate, regular rhythm, no murmurs and peripheral pulses 2+ throughout GI normal to inspection, nondistended, normoactive bowel sounds, soft to palpation, non-tender and non-distended Back/Spine Back/Spine Narrative: Lower back dressing in place, appears clean and dry. Mild pain with active movement but has good range of motion. Extremity normal to inspection, full ROM and no pedal edema Skin no rashes or lesions noted Neuro moves all extremities and no focal motor deficits Speech: speech normal Psych mental status grossly normal Assessment & Plan Assessment/Plan (1) Lumbar stenosis: PLAN: Plan Patient is a 73-year-old male who presented [facility] on 01/01/2024 for planned orthopedic procedure for lumbar stenosis. 1. Lumbar stenosis with spondylosis ? Orthopedic surgery primary. S/p bilateral laminectomy with decompression of bilateral nerve roots at L4-5 and L5-1 with posterolateral fusion with Dr. Coyle. No intraoperative complications. Has had continued localized low back pain on postop day 1, radiculopathy improved. Per orthopedics, will remain in hospital tonight and plan for home with outpatient physical therapy tomorrow. Continue pain control with scheduled Tylenol, oxycodone as needed and IV morphine as needed. Continue home pregabalin. DVT prophylaxis with SCDs and frequent ambulation. Chronic medical conditions: ? Paroxysmal A-fib: In normal sinus rhythm since admission. Not on any rate control or anticoagulation. Continue cardiac monitoring. ? Mild aortic stenosis with mild PFO: Echo in 10/2023 with mild aortic stenosis with mild PFO, otherwise normal EF. No heart failure symptoms noted. Continue outpatient monitoring. ? Hypertension: Stable. Continue home lisinopril. Total clinical time spent by myself addressing the patient's medical issues, reviewing all the data, and collaborating with patient's care team: 25 minutes. Charges/Coding Visit Charges Inpatient E&M: 15[address] [facility] L1
[2024-01-02] MEDS: Morphine 4 MG/ML Syringe IV ×3 (13:04→18:42)
--- NOTE | 2024-01-02 14:53 | CASEMGMT ---
Met with patient to complete BLOUNT form. BLOUNT form explained to patient who voiced understanding and signed form. Original form placed in pt?s chart and copy provided to patient. Oralia Carrillo, Discharge Planning Asst
[2024-01-02] MEDS: Lactated Ringers 1,000 ML 100 ML IV (16:37)
[2024-01-02] MEDS: Pregabalin 75 MG Capsule 150 MG PO (21:07)
[2024-01-02] MEDS: Senna Tablet 2 TABLET PO (21:08)
[2024-01-02] MEDS: Zolpidem Tartrate 5 MG Tablet 10 MG PO (21:33)
--- NOTE | 2024-01-02 22:22 | NURSING ---
Heart rate 87, PR0.21, RR0.68, QT0.36, QT0.36 SR
[2024-01-03] VITALS (8 sets, daily range): BP systolic 113–144; BP diastolic 66–81; PULSE 68–91; RESP 16–18; TEMP 36.4–37; O2SAT 93–98
[2024-01-03] MEDS: dexAMETHasone 4 MG/ML Vial IV ×4 (00:06→17:59)
[2024-01-03] MEDS: 0.9% Saline Lock 10 ML Syringe IV ×4 (00:08→17:59)
[2024-01-03] MEDS: Acetaminophen 500 MG Tablet 1000 MG PO ×2 (06:12→14:11)
[2024-01-03] MEDS: oxyCODONE 5 MG Tablet PO ×3 (06:13→14:55)
[2024-01-03] MEDS: Senna Tablet 2 TABLET PO (14:11)
== END 2024-01-03 18:13 | disposition home or self-care (01) | DRG 454 ==
LOC: SDC 17:12 → MS3 17:12
PROVIDERS: Anesthesiology; Hospitalist; Admitting Provider Orthopaedic Surgery; PCP Family Medicine; Referring Provider Orthopaedic Surgery; Visit Provider Orthopaedic Surgery
PROC: 0SG10AJ Fusion of 2 or more Lumbar Vertebral Joints with Interbody Fusion Device, Posterior Approach, Anterior Column, Open Approach (ICD-10-PCS; CPT 22630; principal; 2024-01-01 09:45)
DX: M48.061 Spinal stenosis, lumbar region without neurogenic claudication (principal); Q21.12 Patent foramen ovale; I10 Essential (primary) hypertension; I35.0 Nonrheumatic aortic (valve) stenosis; I48.0 Paroxysmal atrial fibrillation; E78.5 Hyperlipidemia, unspecified; M51.16 Intervertebral disc disorders with radiculopathy, lumbar region; M51.36 Other intervertebral disc degeneration, lumbar region; M47.816 Spondylosis without myelopathy or radiculopathy, lumbar region; G47.00 Insomnia, unspecified; Z82.3 Family history of stroke
CPT/HCPCS: 36415; 71046; 72100; 76000; 80048; 82962; 83735; 85025; 85027; 85610; 85730; 87081; 93005; 94668; 97116; 97162; 97530; C1713; J7120; A4216; J2405; J3475

== ENCOUNTER → 2024-01-23 | Outpatient (CLI) | payer MEDICARE, BC, SELFPAY ==
--- NOTE | 2024-01-23 13:56 | VDLE_ITS ---
Reason For Study: Pain LLE RIGHT LEFT CFV is compressible, spontaneous, phasic, GSV is normal. competent and demonstrates normal CFV is compressible, spontaneous, phasic, augmentation. competent, and demonstrates normal Procedure augmentation. This is a venous duplex using B-mode, color FV is compressible, spontaneous, phasic, flow and spectral Doppler. competent and demonstrates normal Exam performed in department. augmentation. A preliminary report was called and/or faxed POP V is compressible, spontaneous, phasic, to Dr. Coyle. competent and demonstrates normal augmentation. T/P Trunk is compressible. PTV is compressible. LT PerV is compressible. VL/Venous Duplex US, Unilateral Interpretation Summary Deep veins of the left lower extremity are patent and compressible segmentally. There is no evidence of left lower extremity deep vein thrombosis. The left great saphenous vein paola ears patent and compressible segmentally. Ordering Physician: Conrado Coyle Referring Physician: Juan J Wallace Performed By: Jazmyn Escalante RDCS, RVT
== END | disposition home or self-care (01) ==
LOC: CVS 13:52
PROVIDERS: PCP Family Medicine; Referring Provider Orthopaedic Surgery; Visit Provider Orthopaedic Surgery
DX: M79.605 Pain in left leg (principal)
CPT/HCPCS: 93971

== ENCOUNTER → 2024-02-24 | Outpatient (CLI) | payer MEDICARE, BC, SELFPAY ==
[2024-02-24 15:15] LABS: PSA,Total- Diagnostic 1.69 ng/mL (0.0-4.0)
== END | disposition home or self-care (01) ==
LOC: LAB 13:55
PROVIDERS: PCP Family Medicine; Referring Provider Family Medicine; Visit Provider Family Medicine
DX: R97.20 Elevated prostate specific antigen [PSA] (principal)
CPT/HCPCS: 36415; 84153

== ENCOUNTER → 2024-04-06 | Outpatient (CLI) | payer MEDICARE, BC, SELFPAY ==
--- NOTE | 2024-04-08 16:11 | STRESSREP ---
Stress Test Report Date: 04/06/2024 Procedure: Pharmacologic stress nuclear imaging study Indications: Dyspnea on exertion Consent: Per the patient Procedure: The patient underwent pharmacologic (Regadenoson 0.4mg ) evaluation with a peak heart rate of 83 beats per minute (56%predicted maximal heart rate) and a peak blood pressure of 138/82 mmHg. The baseline ECG demonstrated sinus rhythm. The peak pharmacologic ECG demonstrated no ischemic changes. There were no cardiac dysrhythmias pretest, during pharmacologic infusion, or recovery. There was no complaint of chest discomfort during pharmacologic infusion or recovery. The patient was injected with 11.8 millicuries of technetium 99m Cardiolite and subsequently rest SPECT Cardiolite nuclear imaging was obtained in the horizontal long, vertical long, and short axis views. The patient underwent pharmacologic (Regadenoson) evaluation. The patient was injected with 33.5 millicuries of technetium 99m Cardiolite and subsequently stress SPECT Cardiolite nuclear imaging was obtained in the horizontal long, vertical long, and short axis views. A gated Cardiolite study at peak stress was obtained. The examination was stopped secondary to completion of protocol. Rest and stress SPECT Cardiolite nuclear imaging status post realignment, normalization, and attenuation correction demonstrate mildly decreased perfusion of the apex and septum post pharmacologic infusion. There is end systolic thickening and brightening. The gated Cardiolite study demonstrates myocardial thickening and inward wall motion. The reported LVEF is 80%. Impression: 1. Pharmacologic (Regadenoson) evaluation 2. Peak pharmacologic ECG with no ischemic changes. 3. There were no cardiac dysrhythmias pretest, during pharmacologic infusion, or recovery. 5. Minimally reduced perfusion of the apex and septum post pharmacologic stress that may denote ischemia. Recommend further evaluation with another modality such as coronary CT angio. 6. The gated Cardiolite study reports an LVEF of 80%. This note was generated with drchronoation software. It may contain incorrect words, spelling, and punctuation that were not noted in checking the note before signing.
== END | disposition home or self-care (01) ==
LOC: CVS 06:24
PROVIDERS: PCP Family Medicine; Referring Provider Internal Medicine Cardiovascular Disease; Visit Provider Internal Medicine Cardiovascular Disease
DX: R06.09 Other forms of dyspnea (principal); I35.0 Nonrheumatic aortic (valve) stenosis; R01.1 Cardiac murmur, unspecified; I10 Essential (primary) hypertension
CPT/HCPCS: 78452; 93017; A9500; A4216; J2785

== ENCOUNTER → 2024-05-12 | Outpatient (CLI) | payer MEDICARE, BC, SELFPAY ==
[2024-05-12 16:24] LABS: Free T3 2.8 pg/mL (2.18-3.98); T4 Free Direct 1.12 ng/dL (0.76-1.46)
== END | disposition home or self-care (01) ==
LOC: LAB 15:20
PROVIDERS: PCP Family Medicine; Referring Provider Nurse Practitioner Family; Visit Provider Nurse Practitioner Family
DX: E03.9 Hypothyroidism, unspecified (principal)
CPT/HCPCS: 36415; 84439; 84443; 84481

== ENCOUNTER → 2024-05-27 | Outpatient (CLI) | payer MEDICARE, BC, SELFPAY ==
--- NOTE | 2024-05-27 12:59 | CT_ITS ---
STUDY: CT CHEST WITH CONTRAST REASON FOR EXAM: Male, 73 years old. ABN STRESS RADIATION DOSAGE (If Supplied By Facility): CTDIvol = ( 35.62 ) mGy, DLP = ( 1017.3 ) mGycm TECHNIQUE: Transaxial imaging was performed following intravenous administration of IV 65mL Isovue-370. Cardiac over read examination. Individualized dose optimization techniques were used for this CT. COMPARISON: No relevant priors. FINDINGS: CHEST The lungs are normal. There is no demonstrated pleural abnormality. There are calcifications of the coronary arteries. Normal mediastinum. Normal hilar regions. Normal unenhanced pulmonary arteries. There is atherosclerotic calcification of the aortic arch. Normal osseous structures. There is no demonstrated abnormality of the visualized upper abdomen. CT/Limited Chest CT Cardiac Only IMPRESSION: Coronary artery calcification. Electronically Signed: Hood Sanabria MD at 14:34 EST ,
[2024-05-27 13:13] VITALS: BP 162/96; PULSE 57; RESP 18; TEMP 36.3; O2SAT 99; BMI 24.7
[2024-05-27] MEDS: 0.9% Saline Lock 10 ML Syringe IV (13:25)
[2024-05-27 13:32] VITALS: BP 132/88; PULSE 56
[2024-05-27] MEDS: Nitroglycerin SL (ED/IMG/CATH) 0.4 MG TABLET SL (13:32)
[2024-05-27 13:39] VITALS: BP 132/88; PULSE 56; RESP 18
[2024-05-27 13:39] LABS: CREATININE FINGERSTICK < 1.0 mg/dL (0.70-1.30); EGFR FINGERSTICK > 60.0000 mL/min (>60)
--- NOTE | 2024-05-28 13:14 | CCTA.WCONT ---
CCTA w/Cont Coronary Arteries Date of Study:: 05/27/24 Normal stress test Coronary Calcium Scoring: High-resolution Computed Tomographic imaging of the chest was performed on [05/27/2024], with particular attention paid to the coronary arteries. Intravenous contrast agent was administered per protocol and images reconstructed and displayed. LEFT MAIN CORONARY ARTERY: This arose from the left coronary cusp and does not have any significant stenosis present [] LEFT ANTERIOR DESCENDING CORONARY ARTERY: This arises from the left main coronary artery. It gives off a first diagonal and a second diagonal and a third diagonal vessel. The mid left anterior descending artery had mild stenosis and there was a mild amount of calcification with eccentric at least 50% stenosis noted in the distal segment. The rest of the vessel appeared to be free of significant disease. [] LEFT CIRCUMFLEX CORONARY ARTERY: Nondominant vessel with no significant stenosis present [] RIGHT CORONARY ARTERY: Dominant right coronary artery with mild proximal calcification present. No high-grade obstructive disease noted [] THORACIC AORTA: [] PULMONARY ARTERY: [] LEFT ATRIUM/APPENDAGE: [] MITRAL VALVE: [] AORTIC VALVE: [] LEFT VENTRICLE: [] CORONARY CALCIUM SCORE: Not done Coronary CT angiogram with mild calcification noted in the right coronary artery and mid left anterior descending artery with distal disease present. []
== END | disposition home or self-care (01) ==
PROVIDERS: PCP Family Medicine; Referring Provider Nurse Practitioner Family; Visit Provider Nurse Practitioner Family
DX: R94.39 Abnormal result of other cardiovascular function study (principal); R06.09 Other forms of dyspnea; I35.0 Nonrheumatic aortic (valve) stenosis; I10 Essential (primary) hypertension; E78.5 Hyperlipidemia, unspecified
CPT/HCPCS: 75574; 76380; Q9967

== ENCOUNTER → 2024-09-21 | Outpatient (CLI) | payer MEDICARE, BC, SELFPAY ==
[2024-09-21 08:06] LABS: AST(SGOT) 19 U/L (<=37); Alanine Aminotransfer ALT/SGPT 20 U/L (<=46); Albumin, Serum 4.2 g/dL (3.4-4.8); Alkaline Phosphatase 95 U/L (40-129); Bilirubin, Direct 0.32 mg/dL (0.00-0.30); Cholesterol 148 mg/dL (<=200); Globulin 2.5 g/dL (2.2-4.2); High Density Lipoprotein 31 mg/dL; Low Density Lipoprotein Calc. 96 mg/dL; Protein, Total 6.7 g/dL (5.9-8.4); Total Bilirubin 0.82 mg/dL (0.00-1.30); Triglycerides 103 mg/dL; Very Low Density Lipoprotein 21 mg/dL (5-40); cholesterol:hdl ratio screen 4.74
== END | disposition home or self-care (01) ==
LOC: LAB 05:59
PROVIDERS: PCP Family Medicine; Referring Provider Internal Medicine Cardiovascular Disease; Visit Provider Internal Medicine Cardiovascular Disease
DX: E78.5 Hyperlipidemia, unspecified (principal)
CPT/HCPCS: 36415; 80061; 80076

== ENCOUNTER → 2024-10-14 | Outpatient (CLI) | payer MEDICARE, BC, SELFPAY ==
--- NOTE | 2024-10-14 13:41 | ECHOD_ITS ---
Reason For Study Reason For Study: Procedure This was a 2D Doppler, Color Flow transthoracic echocardiogram. Exam performed in department. Left Ventricle Normal size and thickness. The LV systolic function is normal. EF is 65 %. Normal diastololic function. Right Ventricle Normal right ventricle. Atria The left and right atria are normal. Aneurysmal atrial septum. Mitral Valve Trivial mitral valve insufficiency. Tricuspid Valve Normal tricuspid valve. Aortic Valve Mild aortic valve calcification. Mild aortic valve stenosis. Mean peak gradient 16 mmHg. Pulmonic Valve The pulmonic valve is not well visualized. Great Vessels Normal sized aortic root. Pericardium/Pleural No pericardial effusion. MMode/2D Measurements & Calculations LVIDd: 4.1 cm IVSd: 0.99 cm LVOT diam: 2.0 cm RVDd: 3.3 cm LVPWd: 0.80 cm LVOT area: 3.1 cm2 Ao root diam: 2.6 cm LAV(MOD-bp): 40.0 ml LVAd ap4: 22.3 cm2 LAV(MOD-bp) Indexed: 19.9 ml/m2 LVLd ap4: 8.3 cm LAV(MOD-sp2): 37.5 ml EDV(MOD-sp4): 49.3 ml LAV(MOD-sp4): 34.4 ml EDV(sp4-el): 50.4 ml LVAs ap4: 10.0 cm2 LVLs ap4: 6.6 cm ESV(MOD-sp4): 14.3 ml ESV(sp4-el): 12.9 ml EF(MOD-sp4): 71.1 % EF(sp4-el): 74.3 % SV(MOD-sp4): 35.0 ml SV(sp4-el): 37.5 ml LA A4 area: 16.2 cm2 SI(MOD-sp4): 17.5 ml/m2 LA dimension(2D): 3.5 cm RA A4 area: 13.0 cm2 Time Measurements MV dec time: 0.19 sec Doppler Measurements & Calculations MV E max solomon: 70.8 cm/sec Lat Peak E' Solomon: 14.2 cm/sec Med Peak E' Solomon: 6.7 cm/sec MV A max solomon: 67.5 cm/sec E/E' lat: 5.0 E/E' med: 10.6 MV E/A: 1.0 MV V2 max: 76.2 cm/sec MV dec slope: 382.3 cm/sec2 Ao V2 max: 272.8 cm/sec MV max P.3 mmHg Ao max P.8 mmHg MV V2 mean: 39.4 cm/sec Ao V2 mean: 189.5 cm/sec MV mean P.92 mmHg Ao mean P.3 mmHg MV V2 VTI: 19.4 cm Ao V2 VTI: 56.0 cm MVA(VTI): 4.8 cm2 AV (velocity ratio): 0.54 CLEVE(I,D): 1.7 cm2 CLEVE(V,D): 1.7 cm2 LV V1 max: 145.7 cm/sec SV(LVOT): 93.5 ml PA V2 max: 141.8 cm/sec LV V1 max P.5 mmHg PA V2 mean: 87.3 cm/sec LV V1 mean P.9 mmHg LV V1 mean: 103.4 cm/sec LV V1 VTI: 30.1 cm ECHO/Echo Complete Interpretation Summary The LV systolic function is normal. EF is 65 %. Aneurysmal atrial septum. Mild aortic valve calcification. Mild aortic valve stenosis. Mean peak gradient 16 mmHg. Ordering Physician: Martha Jacobs Referring Physician: Martha Jacobs Performed By: Fifi Olivia RCS
== END | disposition home or self-care (01) ==
LOC: CVS 13:38
PROVIDERS: PCP Family Medicine; Referring Provider Internal Medicine Cardiovascular Disease; Visit Provider Internal Medicine Cardiovascular Disease
DX: I35.0 Nonrheumatic aortic (valve) stenosis (principal); I35.8 Other nonrheumatic aortic valve disorders; I25.10 Atherosclerotic heart disease of native coronary artery without angina pectoris; R06.09 Other forms of dyspnea; R01.1 Cardiac murmur, unspecified
CPT/HCPCS: 93306

== ENCOUNTER → 2025-01-27 | Outpatient (CLI) | payer MEDICARE, BC, SELFPAY ==
--- NOTE | 2025-01-27 15:00 | RAD_ITS ---
PROCEDURE: CERV SPINE 4 OR 5 VIEWS 01/27/2025 REASON FOR EXAM: NECK AND R UPPER BACK PAIN TECHNIQUE: CERV SPINE 4 OR 5 VIEWS COMPARISON: None. FINDINGS: Vertebrae: No acute bony abnormalities. disc spaces: Multilevel degenerate changes predominantly at C3-C4 where there is disc space narrowing, sclerotic endplates and marginal osteophytes. Moderate bilateral foramina stenosis at C3-C4. Alignment: Retrolisthesis C3 on C4 by 2 mm. soft tissues: No soft tissue abnormalities. RAD/Cerv Spine 4 or 5 Views IMPRESSION: Degenerate changes, predominantly at C3-C4. Reading Location: [id number]
[2025-01-27 18:43] LABS: PSA,Total- Diagnostic 1.30 ng/mL (0.00-4.00)
== END | disposition home or self-care (01) ==
PROVIDERS: PCP Family Medicine; Referring Provider Family Medicine; Visit Provider Family Medicine
DX: M50.30 Other cervical disc degeneration, unspecified cervical region (principal); R79.89 Other specified abnormal findings of blood chemistry; Z80.42 Family history of malignant neoplasm of prostate
CPT/HCPCS: 36415; 72050; 84153; 84439; 84443

== ENCOUNTER → 2025-02-03 | Outpatient (CLI) | payer MEDICARE, BC, SELFPAY ==
--- NOTE | 2025-02-03 09:30 | MRI_ITS ---
PROCEDURE: SPINE CERVICAL (ROUTINE) 02/03/2025 REASON FOR EXAM: CERVICAL SPONDYLOSIS, REFERRED PAIN TECHNIQUE: SPINE CERVICAL (ROUTINE) Multiplanar and multisequence images were obtained without IV contrast administration. COMPARISON: None. FINDINGS: Vertebrae: Cervical vertebral body heights are preserved. Bone marrow signal is unremarkable. Alignment: Normal. No spondylolisthesis. Spinal Cord: Cervical spinal cord is of normal size and signal intensities. Structures at the foramen magnum are unremarkable. C2-3: A 2 mm disc osteophyte complex. Facet joint arthropathy. No significant foraminal or canal stenosis. C3-4: Disc osteophyte complex with uncovertebral hypertrophy. Facet joint arthropathy. Severe bilateral foramina stenosis. Moderate canal stenosis. C4-5: Disc osteophyte complex with uncovertebral hypertrophy. Facet joint arthropathy. Mild bilateral foramina stenosis. Moderate canal stenosis. C5-6: Disc desiccation. Disc osteophyte complex. Uncovertebral hypertrophy. Facet joint arthropathy. Mild left foramina stenosis. Mild canal stenosis. C6-7: Disc desiccation. Disc osteophyte complex. Uncovertebral hypertrophy. Moderate bilateral foramina stenosis. No significant canal stenosis. C7-T1: No significant foraminal or canal stenosis. MRI/Spine Cervical (Routine) IMPRESSION: Multilevel degenerate changes predominantly for moderate canal stenosis at C3-C 4 and C4-C5. Severe bilateral foramina stenosis at C3-C4. Reading Location: [facility]
== END | disposition home or self-care (01) ==
LOC: MRI 09:23
PROVIDERS: PCP Family Medicine; Referring Provider Family Medicine; Visit Provider Family Medicine
DX: M54.12 Radiculopathy, cervical region (principal); M47.812 Spondylosis without myelopathy or radiculopathy, cervical region
CPT/HCPCS: 72141

== ENCOUNTER → 2025-06-02 | Outpatient (CLI) | payer MEDICARE, BC, SELFPAY ==
[2025-06-02 19:10] LABS: AST(SGOT) 22 U/L (<=37); Alanine Aminotransfer ALT/SGPT 24 U/L (<=46); Albumin, Serum 4.4 g/dL (3.4-4.8); Alkaline Phosphatase 92 U/L (40-129); Anion Gap 15 (5-15); BUN 13 mg/dL (4-19); BUN/Creat Ratio 16.3 RATIO (10-20); Calcium,Total 9.8 mg/dL (7.6-11.0); Carbon Dioxide 23.4 mmol/L (21.0-32.0); Chloride 103 mmol/L (98-108); Globulin 2.7 g/dL (2.2-4.2); Glucose 99 mg/dL (70-99); Potassium 4.2 mmol/L (3.3-5.1); Vitamin B12 258 pg/mL (180-914)
[2025-06-02 19:11] LABS: CRP < 3.00 mg/L (0.0-3.0)
[2025-06-02 19:16] LABS: Hematocrit 47.5 % (40-54); Hemoglobin 16.6 g/dL (13.0-16.5); Immature Granulocytes Count 0.020 X10^3/uL (0.0-0.0); Mean Corp Hgb Conc 34.9 g/dL (32-36); Mean Corpuscular Volume 92.8 fL (80-94); Mean Platelet Vol. 9.7 fl (6.2-12.0); NRBC Flagged by Analyzer 0 % (0-5); Platelet Count 302 K/mm3 (150-450); RBC Distribution Width CV 13.1 % (11.6-14.6); RBC Distribution Width SD 45.1 fl (35.1-43.9); Red Blood Count 5.12 M/mm3 (4.6-6.2); White Blood Count 8.1 K/mm3 (4.4-11.0)
[2025-06-06 14:08] LABS: ANTINUCLEAR ANTIBODIES DIRECT Negative (Negative)
== END | disposition home or self-care (01) ==
LOC: BFHLAB 14:15
PROVIDERS: PCP Family Medicine; Visit Provider Family Medicine
DX: R23.3 Spontaneous ecchymoses (principal); G62.9 Polyneuropathy, unspecified
CPT/HCPCS: 36415; 80053; 82607; 85025; 85652; 86038; 86140; 86225; 86235